=== PATIENT | female | born 1945 | race Caucasian/White ===

== ENCOUNTER 2017-01-25 08:03 | Inpatient (IN) ==
--- NOTE | 2017-01-22 15:01 | Discharge Summary ---
<LaurelKayla E - Last Filed: 01/22/17 14:59> Date of Encounter: 01/22/17 - Discharge Diagnosis (1) Arthritis of knee, left Priority: Primary Status: Chronic (2) Diabetes mellitus Priority: Secondary Status: Chronic Qualifiers: Diabetes mellitus type: type 2 Diabetes mellitus complication status: with unspecified complications Diabetes mellitus fpc insulin use: unspecified fpc insulin use status Qualified Code(s): E11.8 - Type 2 diabetes mellitus with unspecified complications (3) Hypertension Priority: Secondary Status: Chronic Qualifiers: Hypertension type: essential hypertension Qualified Code(s): I10 - Essential (primary) hypertension - Discharge Medications Home Medications: Aspirin Enteric Coated [Aspirin EC] 325 mg PO DAILY #21 tablet.dr 01/24/17 [Rx] OxyCODONE Immed Rel [Roxicodone 5 MG] 5 - 10 mg PO Q6HR PRN #40 tablet 01/24/17 [Rx] Aspirin Enteric Coated [Aspirin EC] 81 mg PO DAILY 01/25/17 [History] GlipiZIDE [Glipizide Xl] 10 mg PO DAILY 01/25/17 [History] Losartan Potassium [Cozaar] 100 mg PO HS 01/25/17 [History] Lovastatin 10 mg PO HS 01/25/17 [History] Metoprolol XL (24 HR) Succ [Toprol XL] 50 mg PO DAILY 01/25/17 [History] Multivitamin [One Daily Essential] 1 each PO DAILY 01/25/17 [History] [place]-3/Dha/Epa/Fish Oil [Fish Oil 1,000 mg Softgel] 1 each PO DAILY 01/25/17 [ History] Pioglitazone HCl [Actos] 30 mg PO DAILY 01/25/17 [History] Sertraline [Zoloft] 50 mg PO HS 01/25/17 [History] Triamterene/HCTZ 37.5/25mg [Dyazide] 1 each PO DAILY 01/25/17 [History] Allergies/Adverse Reactions: Allergies lisinopril Allergy (Verified 01/25/17 09:22) Cough Primary care physician: Jaya Corey - Patient Status Disposition: Transfer Inpatient Rehab Fac Condition: Good - Discharge Instructions Follow Up With: Angel Spencer MD [Partnered Physician] - 02/23/17 9:05 am Lynnette Iyer PAC [Physician Slot Router] - 02/04/17 10:30 am Javi Jenkins MD [Primary Care Provider] - 06/16/17 9:15 am Additional Instructions: Discharge Instructions: Total Knee Replacement Please call [facility] ([phone]), your Primary Care Physician, or report to the Emergency Room if you have any of the following symptoms: Nausea, vomiting, fever greater that 101.5, swelling, chest pain, shortness of breath, increased pain/redness/drainage/odor for your incision site, numbness/ tingling, or any other concerning symptoms. ACTIVITY:Weight-bearing as tolerated. You may progress off support (cruthches or walker) as tolerated. MEDICATIONS: Upon discharge resume your home medications. Take all the medications as prescribed. Take a stool softener if taking narcotic pain medications. Stool softeners are only effective if you drink enough fluids. Drink 6-8 glass of water or fluids a day, unless this is not allowed for another health problem. Despite using stool softeners, if you haven't had a bowel movement in 3 days, please switch to a gentle laxative. Gentle laxatives are sold over the counter. You should have a bowel movement within 24 hours, if not call the office. You will be discharged from the hospital with a prescription for pain medication. You are encouraged to decrease the use of narcotic pain medication as tolerated. Should you require a refill, please call the office. [facility] prescribes narcotic pain medication for only 4-6 weeks after surgery. If you require pain medication beyond this time periord, you may be referred to your Primary Care Physician or to the Pain Clinic for further evaluation. Plan ahead for refills on pain medication as many narcotics either need to be picked up at the office or mailed. It is best to call 48-72 hours in advance of needing a prescription refill so you don't run out of medication. To help control the post-operative pain, you may take NSAIDs (Aleve,Advil, Motrin, ibuprofen, naprosyn) or Tylenol as prescribed on the bottle in addition to the pain medication. ANTICOAGULATION (blood thinners): Continue your Aspirin, Lovenox or Coumadin as prescribed to help prevent a blood clot in the leg or in the lungs. As long as your incision remains dry and you tolerate the NSAIDs (Aleve, Advil, Motrin, ibuprofen, naprosyn), it is OK to use the NSAIDS while you are taking your anticoagulation medication. Should your incision start to drain, stop the NSAID and contact our office. Common symptoms of blood clot in the legs include: localized pain, swelling, calf tenderness, redness or discoloration of the skin. Blood clot in the lung symptoms include: shortness of breath, rapid pulse, sweating, and chest pain that worsens with deep breathing, coughing up blood, lightheadedness, feelings of anxiety. If you experience any of these symptoms notify your physician immediately, go to the emergency room, or if having trouble breathing, call 911. WOUND CARE: Leave the dressing on for 7 days. You may change the dressing if it becomes saturated greater than 50%. You can shower but not a tub bath or submerge your incision in water. Wash your hands with antibacterial soap, rinse and dry prior to any wound care. If you have sharon the visiting nurse or rehab facility can remove the stapes 10-14 days after surgery and place steri- strips across the wound. Leave the steri-strips in place until they fall off on their won. You may let water from the shower run on top of the steri-stirips. If you do not have a visiting nurse or rehab facility, you will need to return to the office at 10-14 days for the sharon to be removed. FOLLOW-UP: Please follow up with your surgeon in the orthopedic clinic in 4 weeks from the day of surgery. If you have sharon that need to be removed, you will need to come back to the office in 10-14 days from the day of surgery. - Hospital Course Hospital course: Ms. Canada is a 71 year old female - Time Spent with Patient Total time spent providing and/or coordinating discharge services: <Lynnette Iyer - Last Filed: 01/24/17 21:39> Date of Encounter: 01/24/17 Primary care physician: Jaya Corey - Hospital Course Hospital course: Ms. [place] is a 71 year old female - Time Spent with Patient Total time spent providing and/or coordinating discharge services: <Angel Spencer - Last Filed: 01/28/17 08:05> Date of Encounter: 01/28/17 Time of Encounter: 08:04 - Discharge Diagnosis (1) Morbid obesity with BMI of 45.0-49.9, adult Priority: Secondary Status: Chronic (2) Arthritis of knee, left Priority: Primary Status: Acute (3) Diabetes mellitus Priority: Secondary Status: Chronic Qualifiers: Diabetes mellitus type: type 2 Diabetes mellitus complication status: with unspecified complications Diabetes mellitus truck terminal manager insulin use: unspecified truck terminal manager insulin use status Qualified Code(s): E11.8 - Type 2 diabetes mellitus with unspecified complications (4) Hypertension Priority: Secondary Status: Chronic Qualifiers: Hypertension type: essential hypertension Qualified Code(s): I10 - Essential (primary) hypertension (5) Acute blood loss anemia Priority: Primary Status: Acute Primary care physician: Jaya Corey - Patient Status Functional capacity at discharge: uses cane/walker Overall status at discharge: patient is progressing back to baseline - Hospital Course Hospital course: Ms. Canada is a 71 year old female The patient had an uneventful postoperative course. They received antibiotics and physical therapy and were discharged in stable condition. There will follow -up in the office in 2 weeks. - Time Spent with Patient Total time spent providing and/or coordinating discharge services:
--- NOTE | 2017-01-25 08:34 | History & Physical Report ---
Date of Encounter: 01/25/17 Time of Encounter: 08:34 24 Hour HP Update - Instructions Instructions: If the History and Physical is less than 30 days old and was completed prior to A.M. admission and or procedure and has NOT been updated on calendar day of procedure please complete this update prior to performing procedure. - Update Patient reports changes in Medical Condition: No Changes in examination, assessment, or condition: No Changes in Medication: No Preop tests/diagnostics Reviewed: Yes Surgery Remains Indicated: Yes Consent for Planned Operative Procedure(s) Verified: Yes - Pre-Operative Checklist Preoperative Checklist Indicated: No Prophylactic Antibiotic Ordered: Yes Is VTE Prophylaxis Indicated?: Yes
[2017-01-25] MEDS ORDERED: Lidocaine -MPF 1% 2 ML VIAL ID ONE (08:54)
[2017-01-25] MEDS ORDERED: CeFAZolin Pre 3,000 MG/100 ML 3,000 MG/100 ML BAG IVPB ONE (08:54)
[2017-01-25] MEDS ORDERED: Ringers Solution, Lactated 1,000 ML IVC SCH ×3 (09:00→12:56)
[2017-01-25] MEDS ORDERED: Famotidine 20 MG/2 ML VIAL IVP ONE (09:12)
--- NOTE | 2017-01-25 09:15 | Anesthesia Evaluation PreOp ---
Date of Encounter: 01/25/17 Time of Encounter: 09:10 - Past History Planned Operation: Left TKA Cardiac History: HTN, Hyperlipidemia Pulmonary History: Denies Any Significant HX CENTRAL STERILIZATION TECHNICIAN History: Denies Any Significant HX Other Medical History: Diabetes Type II Anesthesia History: No Prior Anesthetic Complications : No Alcohol Use: none Drug use: none Medications and Allergies Aspirin Enteric Coated [Aspirin EC] 325 mg PO DAILY #21 tablet. 01/24/17 [Rx] OxyCODONE Immed Rel [Roxicodone 5 MG] 5 - 10 mg PO Q6HR PRN #40 tablet 01/24/17 [Rx] Allergies lisinopril Allergy (Unverified 01/12/17 10:50) Cough - Meds/Allergy Pre-op Review Medications Reviewed: Yes Allergies Reviewed: Yes Beta Blockers on Current Med List: Yes (Took Metoprolol today at 0600 today) Anesthesia Results - Labs Laboratory Tests 01/12/17 01/12/17 10:21 10:21 Hgb 12.1 Hct 37.6 Plt Count 91 L Sodium 138 Potassium 4.5 BUN 27 H Creatinine 1.29 H - Imaging EKG: report reviewed (SB) Anesthesia Exam O2 Sat Height 1.68 m Height 1.68 m Height 1.68 m Weight 129.274 kg Weight 129.274 kg Weight 129.274 kg O2 Sat by Pulse Oximetry 95 Vital Signs Temp Pulse Resp BP Pulse Ox 98.1 F 57 18 152/63 95 01/25/17 08:27 01/25/17 08:27 01/25/17 08:27 01/25/17 08:27 01/25/17 08:27 Height: 5'6 Weight: 285 lbs NPO (# of Hours): MN Pain Scale: 0 - HEENT Pupil (Motor): Pupils equal, EOMI Mallampati: III Oral Opening: Less than or equal to 3 - CENTRAL STERILIZATION TECHNICIAN LOC: Oriented CENTRAL STERILIZATION TECHNICIAN Motor: Normal RUE, Normal LUE, Normal RLE, Normal LLE, Normal Face CENTRAL STERILIZATION TECHNICIAN Sensory: Normal: RUE, LUE, RLE, LLE, Face - Cardiac Rhythm: Regular Murmur: None JVD: No Carotid Bruit: No - Pulmonary Breath Sounds: bilateral Clear Respiratory Effort: Symmetrical Anesthesia Assess/Plan ASA Score: 3 (HTN DM) Modified Fernie Scale for Level of Consciousness: Cooperative, oriented, and tranquil Anesthetic Plan: General, Regional Monitoring Plan: Standard Monitors Recovery Plan: PACU (Discussed GA and RA, agrees to proceed)
[2017-01-25] MEDS ORDERED: Lidocaine -MPF 2% 2 ML VIAL ONE (09:29)
[2017-01-25] MEDS ORDERED: Ondansetron 4 MG/2 ML VIAL ONE (09:29)
[2017-01-25] MEDS ORDERED: *HR* Midazolam HCl 2 MG/2 ML VIAL ONE (09:29)
[2017-01-25] MEDS ORDERED: Dexamethasone 4 MG/ML VIAL ONE (09:29)
[2017-01-25] MEDS ORDERED: *HR* Succinylcholine 200 MG/10 ML VIAL IVP ONE (09:29)
[2017-01-25] MEDS ORDERED: *HR* FentaNYL (PF) 100 MCG/2 ML VIAL ONE ×2 (09:30→11:22)
[2017-01-25] MEDS ORDERED: *HR* Propofol 200 MG/20 ML VIAL IVP ONE (09:30)
[2017-01-25] MEDS ORDERED: *HR* Phenylephrine 10 MG/ML VIAL ONE (09:43)
[2017-01-25] MEDS ORDERED: ROPIVACAINE HCL/PF 0.5% 30 ML VIAL ONE (10:17)
[2017-01-25] MEDS ORDERED: Bupivacaine/Clonidine Syringe 1 EACH SYRINGE ONE (10:18)
--- NOTE | 2017-01-25 10:48 | Anesthesia Procedures ---
Date of Encounter: 01/25/17 Time of Encounter: 10:30 Procedures: Anesthesia - Nerve Block Procedure Date: 01/25/17 Time: 10:30 Pre-op Diagnosis: Left knee arthritis Surgical Procedure: Left total knee arthroplasty Checklist: Correct Patient Identifier, Correct procedure, History checked Correct side: Left Blood Thinner: No Monitor Applied: EKG, BP, Pulse Oximetry Supplemental Oxygen via Nasal Cannula (L/min): 2 Sedation: Versed (mg): 2 Sedation: Fentanyl (mcg): 100 Indication: Post Op Analgesia Pre-op Neuro Deficits: No Block Type: Femoral, Popliteal, Other (I) Catheter placed: No Sterile Technique: Yes Ultrasound used: Yes Anatomy identified: Yes Visual spread of Local: Yes Neuro Stimulation: Yes Nerve Stimulator Range: 0.2 - 0.4 mA Blood on Needle Aspiration: No Smooth Injection of Local: Yes Pain with Injection of Local: No Prep: Chlorhexadine Needle: 22 x 50 mm Stimuplex Local: 0.25% Bupivicaine w/Clonidine 20 mcg/cc, Ropivacaine (0.5% 30ml) Volume (cc): 20 Number of Attempts: 1 Complications: None/effective block Vitals: Vital Signs/O2 Sat/Glucose, Most Recent Temp Pulse Resp BP Pulse Ox 98.1 F 57 16 149/62 95 01/25/17 08:27 01/25/17 10:23 01/25/17 10:23 01/25/17 10:23 01/25/17 10:23
[2017-01-25] MEDS ORDERED: Dexamethasone 4 MG/ML VIAL IVP ONE (11:06)
[2017-01-25] MEDS ORDERED: Ondansetron 4 MG/2 ML VIAL IVP ONE (11:06)
--- NOTE | 2017-01-25 11:36 | Orthopedic Operative Note ---
Date of procedure: 01/25/17 Pre-op diagnosis: Left knee arthritis Post-op diagnosis: same Procedure: Procedure: Left Total knee replacement Estimated blood loss: 300 cc Hardware: Arthrex Femur: 5 Tibia: 4 PS insert: 12 Patella: 37 Exam Under anesthesia: Full flexion full extension no instability Procedural Notes: Grade 3 arthritic changes patellofemoral joint and medial compartment Operative procedure: The patient was brought to the operating room and placed on the operating room table. After general anesthesia was administered the operative knee was examined. Findings were noted in the exam under anesthesia. The operative extremity was prepped and draped in sterile surgical fashion. The patient received IV antibiotics prior to skin incision. A standard midline incision was made centered over the patella. The incision was made through the skin and subcutaneous tissue. A medial parapatellar tendon approach was performed. Care was taken to preserve tissue along the medial aspect of the patella. And to protect the patella tendon. The deep MCL was released off the medial tibia. The infra patella fat pad was excised. Knee was brought into flexion. Patient noted to have grade 3 arthritic changes patellofemoral joint and medial compartment. The entry hole was made for the intramedullary femoral guide. The guide was seated in 6 degrees of valgus. Anterior cut was made followed by the distal cut. The ACL the PCL the medial and the lateral menisci were excised. The tibia was subluxed forward. The entry hole was made for the intramedullary tibial guide. Guide was seated to resect 2 mm off the more abnormal side. The knee was brought into flexion the distal femur was sized to a 5. The femoral guide was seated, the anterior cut was made followed by the posterior condylar cut, followed by the chamfer cuts. The finishing guide was seated the box cut was made and the lug holes were drilled. The tibia was sized to a 4, the tibial tray was seated and prepared with the large drill followed by the fin cutter. Trial reduction revealed full extension no varus valgus instability with the appropriate 12 PS Katie. The patella was everted and cut was made at the level of the insertion of the quadriceps and patella tendon. The patella was sized to a 37 the guide was seated and the lug holes are drilled. Trial reduction revealed excellent patella tracking. All trial components were removed all bony surfaces were irrigated. The tibia was cemented first followed by the femur. The 12 PS Katie was seated and the knee was brought into full extension. The patella was cemented and held in place with the patellar holding clamp. After the cement had hardened, the knee sat for 2 minutes with a Betadine saline solution. The knee was then irrigated out with 2 L of pulse irrigation. The extensor mechanism was closed with #2 FiberWire suture and #2 PDS suture. The subcutaneous tissue was then irrigated and closed deep with #1 PDS suture superficially with 0 PDS suture and skin was closed with skin sharon. The patient was then placed in a sterile dressing and a postoperative brace extubated and transferred to recovery room in stable condition. Anesthesia: MATEO Surgeon: Angel Spencer Social Insurance Administrator: Lynnette Iyer Condition: stable Disposition: PACU
[2017-01-25] MEDS: *HR* HYDROmorphone (PF) 1 MG/ML SYRINGE IVP PRN ×6 (12:11→20:52)
[2017-01-25 12:25] LABS: Hematocrit 33.7 % (35.3-44.9); Hemoglobin 10.7 g/dL (11.5-15.4)
[2017-01-25] MEDS ORDERED: Temazepam 15 MG CAPSULE PO PRN (12:56)
[2017-01-25] MEDS ORDERED: MOM Conc 10 ML UD.LIQ PO PRN (12:56)
[2017-01-25] MEDS ORDERED: Acetaminophen 325 MG TABLET PO PRN (12:56)
[2017-01-25] MEDS ORDERED: Sennosides 8.6 MG TABLET PO PRN (12:56)
[2017-01-25] MEDS ORDERED: D5% in Water 1,000 ML IVC PRN (12:56)
[2017-01-25] MEDS ORDERED: Dextrose Gel 15 GM PO PRN ×2 (12:56)
[2017-01-25] MEDS ORDERED: Naloxone 0.4 MG/ML INJ IVP PRN (12:56)
[2017-01-25] MEDS ORDERED: *HR* Dextrose 50 % in Water (Syg) 50 ML SYRINGE IVP PRN (12:56)
[2017-01-25] MEDS ORDERED: Ondansetron 4 MG/2 ML VIAL IVP PRN (12:56)
--- NOTE | 2017-01-25 13:08 | Anesthesia Evaluation Post Op ---
Date of Encounter: 01/25/17 Time of Encounter: 12:30 - Vital Signs Vital Signs: Vital Signs/O2 Sat/Glucose, Most Current Temp Pulse Resp BP Pulse Ox 01/25/17 12:59 98 F 64 13 157/69 96 01/25/17 12:45 98.2 F 61 14 147/69 98 01/25/17 12:35 98.2 F 68 15 155/64 97 01/25/17 12:25 66 18 146/71 96 01/25/17 12:15 69 17 158/64 93 01/25/17 12:05 97.0 F L 79 14 102/82 94 01/25/17 10:40 57 16 163/64 98 01/25/17 10:23 57 16 149/62 95 - Lungs Lungs: Clear Ascult./Percussion - Airway Airway: Non-obstructed - Cardiovascular Regular Rate - Mental Status Mental Status: Alert & Oriented, Answers Appropriately - Pain Pain Scale: 2 - Nausea Vomiting Nausea Vomiting: Not Present - Hydration Hydration: Ice chips - Discharge PostOp Status: Transfer Patient to floor
[2017-01-25] MEDS: *HR* OxyCODONE Immed Rel 5 MG TABLET PO PRN ×2 (13:59→18:24)
[2017-01-25] MEDS: Insulin LISPRO 300 UNITS/3 ML VIAL SQ SCH ×2 (14:06→17:17)
[2017-01-25] MEDS: *HR* Enoxaparin 30 MG/0.3 ML SYRINGE SQ SCH (17:16)
[2017-01-25] MEDS ORDERED: *HR* Enoxaparin 30 MG/0.3 ML SYRINGE SQ SCH (18:00)
[2017-01-25] MEDS: ceFAZolin 3,000 MG in D5% in Water 100 ML IVPB SCH (18:23)
[2017-01-26] MEDS: *HR* OxyCODONE Immed Rel 5 MG TABLET PO PRN ×5 (00:11→18:36)
[2017-01-26] MEDS: ceFAZolin 3,000 MG in D5% in Water 100 ML IVPB SCH (02:25)
[2017-01-26] MEDS: *HR* Enoxaparin 30 MG/0.3 ML SYRINGE SQ SCH ×2 (04:46→16:52)
--- NOTE | 2017-01-26 06:52 | Orthopedics Progress Note ---
Date of Encounter: 01/26/17 Time of Encounter: 06:51 - Assessment and Plan (1) Morbid obesity with BMI of 45.0-49.9, adult Current Visit: Yes Status: Chronic (2) Arthritis of knee, left Current Visit: Yes Status: Acute (3) Diabetes mellitus Current Visit: Yes Status: Chronic Qualifiers: Diabetes mellitus type: type 2 Diabetes mellitus complication status: with unspecified complications Diabetes mellitus termite helper insulin use: unspecified snf insulin use status Qualified Code(s): E11.8 - Type 2 diabetes mellitus with unspecified complications (4) Hypertension Current Visit: Yes Status: Chronic Qualifiers: Hypertension type: essential hypertension Qualified Code(s): I10 - Essential (primary) hypertension Subjective Interval history: Patient was seen this morning doing well without complaints. Afebrile vital signs stable. Operative extremity: Neurovascularly intact Dressing clean dry and intact Calves nontender Assessment and plan: Continue with postoperative care Hematocrit 33 Objective Vital signs: Vital Signs Temp Pulse Resp BP Pulse Ox 01/26/17 06:40 98.7 F 69 18 139/56 97 01/26/17 04:00 98.0 F 60 16 160/80 96 01/26/17 00:00 97.7 F 63 16 172/80 96 01/25/17 21:04 96 01/25/17 20:00 97.8 F 60 17 170/81 96 01/25/17 15:38 97.6 F 63 18 150/61 96 01/25/17 15:32 97.5 F L 62 18 154/77 94 01/25/17 13:57 97.9 F 65 14 145/65 95 01/25/17 12:59 98 F 64 13 157/69 96 01/25/17 12:45 98.2 F 61 14 147/69 98 01/25/17 12:35 98.2 F 68 15 155/64 97 01/25/17 12:25 66 18 146/71 96 01/25/17 12:15 69 17 158/64 93 01/25/17 12:05 97.0 F L 79 14 102/82 94 01/25/17 10:40 57 16 163/64 98 01/25/17 10:23 57 16 149/62 95 01/25/17 08:27 98.1 F 57 18 152/63 95 Intake and Output 01/25/17 01/25/1701/26/17 15:59 23:59 07:59 Intake Total 200 / 200 1100 / 1100 Output Total 600 / 600 300 / 300 Balance -600 / -600 -100 / -100 1100 / 1100 Intake: IV Fluids 100 / 100 1000 / 1000 Lactated Ringers 1,000 ML 1000 / 1000 @ 75 mls/hr IVC .[id number] DEVEN Rx#:[id number] Ancef 3,000 MG In 100 / 100 Dextrose 5% 100 ML @ 200 mls/hr IVPB Q8H DEVEN Rx#: [id number] Oral 100 / 100 100 / 100 Output: Urine 300 / 300 Estimated Blood Loss 600 / 600 Other: Weight 129.274 kg Blood Glucose* 132 196 - Labs CBC & BMP: 01/25/17 12:15 Labs: Abnormal lab results Hgb 10.7 g/dL (11.5-15.4) L 01/25/17 12:15 Hct 33.7 % (35.3-44.9) L 01/25/17 12:15 POC Glucose 132 (58-89) H 01/25/17 12:09 - VTE Documentation of Mechanical Device: Venous foot pump, device Consult Discharge Plan - Plan Referrals: Javi Jenkins MD [Primary Care Provider] -
[2017-01-26 07:03] LABS: Hematocrit 31.3 % (35.3-44.9)
[2017-01-26 07:20] LABS: Calcium 8.9 mg/dL (8.6-10.8); Potassium 5.4 mEq/L (3.5-4.5)
[2017-01-26] MEDS: Aspirin Enteric Coated 81 MG Tablet PO SCH (07:44)
[2017-01-26] MEDS: *HR* Pioglitazone 30 MG TABLET PO SCH (07:44)
[2017-01-26] MEDS: (Omega-3/Dha/Epa/Fish Oil [Fish Oil 1,000 Mg Softgel] PO SCH (07:45)
[2017-01-26] MEDS: *HR* GlipiZIDE XL (24 HR) 10 MG TABLET PO SCH (07:45)
[2017-01-26] MEDS: Multivit/Ca/Min/Fe/FA 1 TAB TABLET PO SCH (07:45)
[2017-01-26] MEDS: Metoprolol XL (24 HR) Succ 50 MG TAB.ER.24H PO SCH (07:46)
[2017-01-26] MEDS: *HR* HYDROmorphone (PF) 1 MG/ML SYRINGE IVP PRN ×4 (07:46→20:53)
[2017-01-26] MEDS: Insulin LISPRO 300 UNITS/3 ML VIAL SQ SCH ×3 (07:48→16:49)
[2017-01-27] MEDS: *HR* OxyCODONE Immed Rel 5 MG TABLET PO PRN ×5 (02:19→23:33)
[2017-01-27] MEDS: *HR* Enoxaparin 30 MG/0.3 ML SYRINGE SQ SCH ×2 (05:13→16:53)
[2017-01-27 06:44] LABS: Hematocrit 28.9 % (35.3-44.9); Hemoglobin 9.4 g/dL (11.5-15.4)
[2017-01-27 06:59] LABS: Calcium 9.3 mg/dL (8.6-10.8); Potassium 4.8 mEq/L (3.5-4.5)
[2017-01-27] MEDS: Aspirin Enteric Coated 81 MG Tablet PO SCH (08:01)
[2017-01-27] MEDS: Metoprolol XL (24 HR) Succ 50 MG TAB.ER.24H PO SCH (08:02)
[2017-01-27] MEDS: Multivit/Ca/Min/Fe/FA 1 TAB TABLET PO SCH (08:02)
[2017-01-27] MEDS: *HR* Pioglitazone 30 MG TABLET PO SCH (08:02)
[2017-01-27] MEDS: *HR* HYDROmorphone (PF) 1 MG/ML SYRINGE IVP PRN ×3 (08:02→17:59)
[2017-01-27] MEDS: *HR* GlipiZIDE XL (24 HR) 10 MG TABLET PO SCH (08:02)
[2017-01-27] MEDS: Insulin LISPRO 300 UNITS/3 ML VIAL SQ SCH ×3 (08:14→16:53)
--- NOTE | 2017-01-27 08:35 | Orthopedics Progress Note ---
Date of Encounter: 01/27/17 Time of Encounter: 08:34 - Assessment and Plan (1) Morbid obesity with BMI of 45.0-49.9, adult Current Visit: Yes Status: Chronic (2) Arthritis of knee, left Current Visit: Yes Status: Acute (3) Diabetes mellitus Current Visit: Yes Status: Chronic Qualifiers: Diabetes mellitus type: type 2 Diabetes mellitus complication status: with unspecified complications Diabetes mellitus intermediate card tender insulin use: unspecified care home insulin use status Qualified Code(s): E11.8 - Type 2 diabetes mellitus with unspecified complications (4) Hypertension Current Visit: Yes Status: Chronic Qualifiers: Hypertension type: essential hypertension Qualified Code(s): I10 - Essential (primary) hypertension (5) Acute blood loss anemia Current Visit: Yes Status: Acute Subjective Interval history: Patient was seen this morning doing well without complaints. Afebrile vital signs stable. Operative extremity: Neurovascularly intact Dressing clean dry and intact Calves nontender Assessment and plan: Continue with postoperative care Hematocrit 28.9 Objective Vital signs: Vital Signs Temp Pulse Resp BP Pulse Ox 01/27/17 07:04 98.9 F 81 16 156/71 94 01/27/17 04:24 99.0 F 87 17 152/76 93 01/27/17 00:34 98.6 F 95 16 156/70 93 01/26/17 20:05 99.1 F 82 15 178/66 92 01/26/17 15:46 98.6 F 81 18 153/69 93 01/26/17 10:51 98.9 F 81 18 152/62 93 Intake and Output 01/26/17 01/27/17 01/27/17 23:59 07:59 15:59 Intake Total 100 / 100 Output Total 1000 / 1000 Balance -900 / -900 Intake: IV Fluids 100 / 100 Output: Urine 1000 / 1000 Other: # Voids 1 Blood Glucose* 184 191 - Labs CBC & BMP: 01/27/17 06:19 01/27/17 06:19 Labs: Abnormal lab results Hgb 9.4 g/dL (11.5-15.4) L 01/27/17 06:19 Hct 28.9 % (35.3-44.9) L 01/27/17 06:19 Sodium 130 mEq/L (136-145) L 01/27/17 06:19 Potassium 4.8 mEq/L (3.5-4.5) H 01/27/17 06:19 Chloride 97 mEq/L (98-109) L 01/27/17 06:19 BUN 30 mg/dL (7-20) H 01/27/17 06:19 Creatinine 1.35 mg/dL (0.57-1.11) H 01/27/17 06:19 Est GFR ( Amer) 47 (> 60) L 01/27/17 06:19 Est GFR (Non-Af Amer) 39 (> 60) L 01/27/17 06:19 Glucose 185 mg/dL (70-99) H 01/27/17 06:19 POC Glucose 132 (58-89) H 01/25/17 12:09 - VTE Documentation of Mechanical Device: Venous foot pump, device Consult Discharge Plan - Plan Additional Instructions: Discharge Instructions: Total Knee Replacement Please call [facility] ([phone]), your Primary Care Physician, or report to the Emergency Room if you have any of the following symptoms: Nausea, vomiting, fever greater that 101.5, swelling, chest pain, shortness of breath, increased pain/redness/drainage/odor for your incision site, numbness/ tingling, or any other concerning symptoms. ACTIVITY:Weight-bearing as tolerated. You may progress off support (cruthches or walker) as tolerated. MEDICATIONS: Upon discharge resume your home medications. Take all the medications as prescribed. Take a stool softener if taking narcotic pain medications. Stool softeners are only effective if you drink enough fluids. Drink 6-8 glass of water or fluids a day, unless this is not allowed for another health problem. Despite using stool softeners, if you haven't had a bowel movement in 3 days, please switch to a gentle laxative. Gentle laxatives are sold over the counter. You should have a bowel movement within 24 hours, if not call the office. You will be discharged from the hospital with a prescription for pain medication. You are encouraged to decrease the use of narcotic pain medication as tolerated. Should you require a refill, please call the office. [facility] prescribes narcotic pain medication for only 4-6 weeks after surgery. If you require pain medication beyond this time periord, you may be referred to your Primary Care Physician or to the Pain Clinic for further evaluation. Plan ahead for refills on pain medication as many narcotics either need to be picked up at the office or mailed. It is best to call 48-72 hours in advance of needing a prescription refill so you don't run out of medication. To help control the post-operative pain, you may take NSAIDs (Aleve,Advil, Motrin, ibuprofen, naprosyn) or Tylenol as prescribed on the bottle in addition to the pain medication. ANTICOAGULATION (blood thinners): Continue your Aspirin, Lovenox or Coumadin as prescribed to help prevent a blood clot in the leg or in the lungs. As long as your incision remains dry and you tolerate the NSAIDs (Aleve, Advil, Motrin, ibuprofen, naprosyn), it is OK to use the NSAIDS while you are taking your anticoagulation medication. Should your incision start to drain, stop the NSAID and contact our office. Common symptoms of blood clot in the legs include: localized pain, swelling, calf tenderness, redness or discoloration of the skin. Blood clot in the lung symptoms include: shortness of breath, rapid pulse, sweating, and chest pain that worsens with deep breathing, coughing up blood, lightheadedness, feelings of anxiety. If you experience any of these symptoms notify your physician immediately, go to the emergency room, or if having trouble breathing, call 911. WOUND CARE: Leave the dressing on for 7 days. You may change the dressing if it becomes saturated greater than 50%. You can shower but not a tub bath or submerge your incision in water. Wash your hands with antibacterial soap, rinse and dry prior to any wound care. If you have sharon the visiting nurse or rehab facility can remove the stapes 10-14 days [address] surgery [address] steri- strips across the wound. Leave the steri-strips in place until they fall off on their won. You may let water from the shower run on top of the steri-stirips. If you do not have a visiting nurse or rehab facility, you will need to return to the office at 10-14 days for the sharon to be removed. FOLLOW-UP: Please follow up with your surgeon in the orthopedic clinic in 4 weeks from the day of surgery. If you have sharon that need to be removed, you will need to come back to the office in 10-14 days from the day of surgery. Referrals: Angel Spencer MD [Partnered Physician] - 02/23/17 9:05 am Lynnette Iyer PAC [Physician Unit Tender] - 02/04/17 10:30 am Javi Jenkins MD [Primary Care Provider] - 06/16/17 9:15 am
[2017-01-27] MEDS: (Omega-3/Dha/Epa/Fish Oil [Fish Oil 1,000 Mg Softgel] PO SCH (09:37)
[2017-01-28] MEDS: *HR* OxyCODONE Immed Rel 5 MG TABLET PO PRN ×2 (05:40→10:16)
[2017-01-28] MEDS: *HR* Enoxaparin 30 MG/0.3 ML SYRINGE SQ SCH (05:41)
--- NOTE | 2017-01-28 08:07 | Orthopedics Progress Note ---
Date of Encounter: 01/28/17 Time of Encounter: 08:07 - Assessment and Plan (1) Morbid obesity with BMI of 45.0-49.9, adult Current Visit: Yes Status: Chronic (2) Arthritis of knee, left Current Visit: Yes Status: Acute (3) Diabetes mellitus Current Visit: Yes Status: Chronic Qualifiers: Diabetes mellitus type: type 2 Diabetes mellitus complication status: with unspecified complications Diabetes mellitus terminal supervisor insulin use: unspecified residential insulin use status Qualified Code(s): E11.8 - Type 2 diabetes mellitus with unspecified complications (4) Hypertension Current Visit: Yes Status: Chronic Qualifiers: Hypertension type: essential hypertension Qualified Code(s): I10 - Essential (primary) hypertension (5) Acute blood loss anemia Current Visit: Yes Status: Acute Subjective Interval history: Patient was seen this morning doing well without complaints. Afebrile vital signs stable. Operative extremity: Neurovascularly intact Dressing clean dry and intact Calves nontender Assessment and plan: Continue with postoperative care Discharged today Objective Vital signs: Vital Signs Temp Pulse Resp BP Pulse Ox 01/28/17 06:59 99.0 F 87 16 159/67 94 01/28/17 04:23 99.2 F 81 17 163/68 93 01/28/17 00:38 98.9 F 81 16 163/74 92 01/27/17 21:29 92 01/27/17 20:27 99.1 F 90 16 160/67 92 01/27/17 14:49 98.8 F 85 18 145/68 93 01/27/17 11:00 98.6 F 81 16 152/60 92 Intake and Output 01/27/17 01/28/17 01/28/17 23:59 07:59 15:59 Output Total 300 / 300 Balance -300 / -300 Output: Urine 300 / 300 Other: Blood Glucose* 164 178 - Labs CBC & BMP: 01/27/17 06:19 01/27/17 06:19 Labs: Abnormal lab results Hgb 9.4 g/dL (11.5-15.4) L 01/27/17 06:19 Hct 28.9 % (35.3-44.9) L 01/27/17 06:19 Sodium 130 mEq/L (136-145) L 01/27/17 06:19 Potassium 4.8 mEq/L (3.5-4.5) H 01/27/17 06:19 Chloride 97 mEq/L (98-109) L 01/27/17 06:19 BUN 30 mg/dL (7-20) H 01/27/17 06:19 Creatinine 1.35 mg/dL (0.57-1.11) H 01/27/17 06:19 Est GFR ( Amer) 47 (> 60) L 01/27/17 06:19 Est GFR (Non-Af Amer) 39 (> 60) L 01/27/17 06:19 Glucose 185 mg/dL (70-99) H 01/27/17 06:19 POC Glucose 178 (58-89) H 01/28/17 07:02 - VTE Documentation of Mechanical Device: Venous foot pump, device Consult Discharge Plan - Plan Additional Instructions: Discharge Instructions: Total Knee Replacement Please call [facility] ([phone]), your Primary Care Physician, or report to the Emergency Room if you have any of the following symptoms: Nausea, vomiting, fever greater that 101.5, swelling, chest pain, shortness of breath, increased pain/redness/drainage/odor for your incision site, numbness/ tingling, or any other concerning symptoms. ACTIVITY:Weight-bearing as tolerated. You may progress off support (cruthches or walker) as tolerated. MEDICATIONS: Upon discharge resume your home medications. Take all the medications as prescribed. Take a stool softener if taking narcotic pain medications. Stool softeners are only effective if you drink enough fluids. Drink 6-8 glass of water or fluids a day, unless this is not allowed for another health problem. Despite using stool softeners, if you haven't had a bowel movement in 3 days, please switch to a gentle laxative. Gentle laxatives are sold over the counter. You should have a bowel movement within 24 hours, if not call the office. You will be discharged from the hospital with a prescription for pain medication. You are encouraged to decrease the use of narcotic pain medication as tolerated. Should you require a refill, please call the office. [facility] prescribes narcotic pain medication for only 4-6 weeks after surgery. If you require pain medication beyond this time periord, you may be referred to your Primary Care Physician or to the Pain Clinic for further evaluation. Plan ahead for refills on pain medication as many narcotics either need to be picked up at the office or mailed. It is best to call 48-72 hours in advance of needing a prescription refill so you don't run out of medication. To help control the post-operative pain, you may take NSAIDs (Aleve,Advil, Motrin, ibuprofen, naprosyn) or Tylenol as prescribed on the bottle in addition to the pain medication. ANTICOAGULATION (blood thinners): Continue your Aspirin, Lovenox or Coumadin as prescribed to help prevent a blood clot in the leg or in the lungs. As long as your incision remains dry and you tolerate the NSAIDs (Aleve, Advil, Motrin, ibuprofen, naprosyn), it is OK to use the NSAIDS while you are taking your anticoagulation medication. Should your incision start to drain, stop the NSAID and contact our office. Common symptoms of blood clot in the legs include: localized pain, swelling, calf tenderness, redness or discoloration of the skin. Blood clot in the lung symptoms include: shortness of breath, rapid pulse, sweating, and chest pain that worsens with deep breathing, coughing up blood, lightheadedness, feelings of anxiety. If you experience any of these symptoms notify your physician immediately, go to the emergency room, or if having trouble breathing, call 911. WOUND CARE: Leave the dressing on for 7 days. You may change the dressing if it becomes saturated greater than 50%. You can shower but not a tub bath or submerge your incision in water. Wash your hands with antibacterial soap, rinse and dry prior to any wound care. If you have sharon the visiting nurse or rehab facility can remove the stapes 10-14 [address] surgery [address] steri- strips across the wound. Leave the steri-strips in place until they fall off on their won. You may let water from the shower run on top of the steri-stirips. If you do not have a visiting nurse or rehab facility, you will need to return to the office at 10-14 days for the sharon to be removed. FOLLOW-UP: Please follow up with your surgeon in the orthopedic clinic in 4 weeks from the day of surgery. If you have sharon that need to be removed, you will need to come back to the office in 10-14 days from the day of surgery. Referrals: Angel Spencer MD [Partnered Physician] - 02/23/17 9:05 am Lynnette Iyer PAC [Physician House Registry Rn] - 02/04/17 10:30 am Javi Jenkins MD [Primary Care Provider] - 06/16/17 9:15 am
[2017-01-28] MEDS: Insulin LISPRO 300 UNITS/3 ML VIAL SQ SCH ×2 (08:23→11:52)
[2017-01-28] MEDS: *HR* GlipiZIDE XL (24 HR) 10 MG TABLET PO SCH (08:23)
[2017-01-28] MEDS: *HR* Pioglitazone 30 MG TABLET PO SCH (08:23)
[2017-01-28] MEDS: Metoprolol XL (24 HR) Succ 50 MG TAB.ER.24H PO SCH (08:24)
[2017-01-28] MEDS: Aspirin Enteric Coated 81 MG Tablet PO SCH (08:24)
[2017-01-28] MEDS: Multivit/Ca/Min/Fe/FA 1 TAB TABLET PO SCH (08:24)
[2017-01-28] MEDS: (Omega-3/Dha/Epa/Fish Oil [Fish Oil 1,000 Mg Softgel] PO SCH (10:15)
[2017-01-28 11:36] VITALS: BP 149/70
== END 2017-01-28 12:45 | DRG 470 ==
LOC: SAMDAY 08:03 → 3NENU 12:56
PROVIDERS: ADMIT Orthopaedic Surgery; ATTEND Orthopaedic Surgery

== ENCOUNTER 2020-05-27 13:06 | Inpatient (IN) ==
[2020-05-27 14:07] LABS: Hematocrit 31.6 % (35.3-44.9); Hemoglobin 9.9 g/dL (11.5-15.4); Mean Corpuscular HGB Conc 31.3 g/dL (31.6-35.5); Mean Corpuscular Hemoglobin 27.7 pg (28.0-33.3); Mean Corpuscular Volume 88.3 fL (83.0-100.0); Mean Platelet Volume 11.1 fL (9.4-12.4); Platelet Count 154 K/mcL (140-400); Red Blood Count 3.58 M/mcL (3.82-4.97); Red Cell Distribution Width 13.6 % (11.5-14.5); White Blood Count 16.3 K/mcL (4.3-11.1)
[2020-05-27 14:14] LABS: INR 1.2; Prothrombin Time 13.7 Seconds (9.4-12.1)
[2020-05-27 14:16] LABS: Activated Partial Thrombo Time 29.1 Seconds (26.0-36.0)
[2020-05-27 14:27] LABS: Albumin 3.6 g/dL (3.5-5.7); Albumin/Globulin Ratio 1.6 (1.1-2.2); Bilirubin,Direct 0.1 mg/dL (0.0-0.2); Bilirubin,Indirect 0.4 mg/dL (0.0-1.0); Bilirubin,Total 0.5 mg/dL (0.3-1.0); Calcium 8.7 mg/dL (8.6-10.3); Globulin 2.2 g/dL (2.4-3.5); Potassium 4.4 mEq/L (3.5-5.1); Total Protein 5.8 g/dL (6.4-8.9)
[2020-05-27 14:37] LABS: Lymphocytes # 3.9 K/mcL (0.6-4.6); Monocytes # 1.3 K/mcL (0.0-1.3); Neutrophils # 11.1 K/mcL (1.6-8.9); Platelet Estimate Normal (Normal); Reactive Lymphocytes Present (Not Present)
[2020-05-27 14:38] LABS: Poikilocytosis 1+ (Not Present)
[2020-05-27] MEDS ORDERED: cefTRIAXone 2,000 MG in 0.9 % Sodium Chloride Mini Bag 100 ML IVPB ONE (15:32)
[2020-05-27] MEDS: Albumin 25% 25gram/100mL 25 GM/100 ML IV.SOLN IVC SCH (16:18)
[2020-05-27 17:11] LABS: Glucose,Peritoneal Fluid 102 mg/dL (No Ref Range); LDH,Peritoneal Fluid 79 Units/L (No Ref Range); Total Protein,Peritoneal Fluid < 3.0 g/dL
[2020-05-27] MEDS ORDERED: Naloxone 0.4 MG/ML INJ IVP PRN (17:21)
[2020-05-27] MEDS ORDERED: Perflutren Lipid Microsphere 1.3 ML in 0.9 % Sodium Chloride 8.7 ML IVP PRN (17:44)
[2020-05-27 17:46] LABS: Hepatitis B Surface Antigen Nonreactive (Nonreactive)
[2020-05-27] MEDS ORDERED: Furosemide 40 MG/4 ML VIAL IVP ONE (17:46)
[2020-05-27] MEDS ORDERED: Dextrose Gel 15 GM/37.5 ML TUBE PO PRN ×2 (17:52)
[2020-05-27] MEDS ORDERED: D5% in Water 1,000 ML IVC PRN (17:52)
[2020-05-27] MEDS ORDERED: *HR* Dextrose 50 % in Water (Vial) 50 ML VIAL IVP PRN (17:52)
[2020-05-27 17:55] LABS: Adenovirus Not Detected (Not Detect); Coronavirus 229E Not Detected (Not Detect); Coronavirus HKU1 Not Detected (Not Detect); Coronavirus NL63 Not Detected (Not Detect); Coronavirus OC43 Not Detected (Not Detect)
[2020-05-27 17:56] LABS: Bordetella Pertussis Not Detected (Not Detect); Chlamydophila pneumoniae Not Detected (Not Detect); Human Metapneumovirus Not Detected (Not Detect); Human Rhinovirus/Enterovirus Not Detected (Not Detect); Influenza A Subtype 2009 H1 Not Detected (Not Detect); Influenza B Not Detected (Not Detect); Mycoplasma pneumoniae Not Detected (Not Detect); Parainfluenza Virus 1 Not Detected (Not Detect); Parainfluenza Virus 2 Not Detected (Not Detect); Parainfluenza Virus 3 Not Detected (Not Detect); Parainfluenza Virus 4 Not Detected (Not Detect); Respiratory Syncytial Virus Not Detected (Not Detect)
[2020-05-27 17:57] LABS: SARS-CoV-2 Not Detected (Not Detect)
[2020-05-27 18:15] LABS: Hepatitis B Core IgM Nonreactive (Nonreactive); Hepatitis C Virus Antibody Nonreactive (Nonreactive)
[2020-05-27 18:17] LABS: Hepatitis A Antibody IgM Nonreactive (Nonreactive)
[2020-05-27 20:01] LABS: Appearance of Peritoneal Fl BLOODY (Clear)
[2020-05-27 20:04] LABS: Basophils,Peritoneal Fluid 0 %; Eosinophils,Peritoneal Fluid 0 %
[2020-05-27] MEDS: Insulin LISPRO 300 UNITS/3 ML VIAL SQ SCH (21:13)
[2020-05-28 02:10] LABS: Basophils % 0.3 %; Eosinophils % 0.2 %; Hematocrit 30.8 % (35.3-44.9); Hemoglobin 9.8 g/dL (11.5-15.4); Immature Granulocytes % 0.4 % (0-4); Lymphocytes # 3.3 K/mcL (0.6-4.6); Lymphocytes % 28.2 %; Mean Corpuscular HGB Conc 31.8 g/dL (31.6-35.5); Mean Corpuscular Hemoglobin 27.9 pg (28.0-33.3); Mean Corpuscular Volume 87.7 fL (83.0-100.0); Mean Platelet Volume 11.5 fL (9.4-12.4); Monocytes % 8.3 %; Neutrophils # 7.3 K/mcL (1.6-8.9); Platelet Count 128 K/mcL (140-400); Red Blood Count 3.51 M/mcL (3.82-4.97); Red Cell Distribution Width 13.6 % (11.5-14.5); Segmented Neutrophils % 62.6 %; White Blood Count 11.6 K/mcL (4.3-11.1)
[2020-05-28 02:26] LABS: Calcium 8.5 mg/dL (8.6-10.3); Potassium 4.5 mEq/L (3.5-5.1)
[2020-05-28] MEDS: *HR* Heparin 5,000 UNIT/ML VIAL SQ SCH ×3 (06:39→17:15)
[2020-05-28] MEDS: Albumin 25% 25gram/100mL 25 GM/100 ML IV.SOLN IVC SCH (08:01)
[2020-05-28] MEDS: Insulin LISPRO 300 UNITS/3 ML VIAL SQ SCH ×4 (08:02→20:20)
[2020-05-28] MEDS ORDERED: Furosemide 40 MG TABLET PO SCH (09:00)
[2020-05-28] MEDS ORDERED: cefTRIAXone 2,000 MG in Water for inj. (sterile) 20 ML IVP SCH (09:00)
[2020-05-28] MEDS: hydrALAZINE 25 MG TABLET PO SCH ×3 (10:51→20:16)
[2020-05-28] MEDS: Aspirin Enteric Coated 81 MG Tablet PO SCH (10:51)
[2020-05-28] MEDS ORDERED: Spironolactone 25 MG TABLET PO SCH (11:30)
[2020-05-28] MEDS: Albumin 25% 25gram/100mL 25 GM/100 ML IV.SOLN IVPB SCH ×2 (17:15→23:59)
[2020-05-28] MEDS: carvediloL 6.25 MG TABLET PO SCH (17:15)
[2020-05-29] MEDS: *HR* Heparin 5,000 UNIT/ML VIAL SQ SCH (05:14)
[2020-05-29] MEDS: Albumin 25% 25gram/100mL 25 GM/100 ML IV.SOLN IVPB SCH ×2 (05:19→11:34)
[2020-05-29 06:30] LABS: Basophils % 0.2 %; Eosinophils # 0.1 K/mcL (0.0-0.6); Eosinophils % 0.7 %; Hematocrit 27.5 % (35.3-44.9); Hemoglobin 8.6 g/dL (11.5-15.4); Immature Granulocytes % 0.4 % (0-4); Lymphocytes # 2.9 K/mcL (0.6-4.6); Lymphocytes % 34.2 %; Mean Corpuscular HGB Conc 31.3 g/dL (31.6-35.5); Mean Corpuscular Hemoglobin 28.4 pg (28.0-33.3); Mean Corpuscular Volume 90.8 fL (83.0-100.0); Mean Platelet Volume 11.5 fL (9.4-12.4); Monocytes # 0.9 K/mcL (0.0-1.3); Monocytes % 10.1 %; Neutrophils # 4.7 K/mcL (1.6-8.9); Platelet Count 100 K/mcL (140-400); Red Blood Count 3.03 M/mcL (3.82-4.97); Red Cell Distribution Width 13.6 % (11.5-14.5); Segmented Neutrophils % 54.4 %; White Blood Count 8.5 K/mcL (4.3-11.1)
[2020-05-29 06:43] LABS: Calcium 8.3 mg/dL (8.6-10.3); Potassium 4.1 mEq/L (3.5-5.1)
[2020-05-29] MEDS: Insulin LISPRO 300 UNITS/3 ML VIAL SQ SCH ×2 (08:07→11:51)
[2020-05-29] MEDS: hydrALAZINE 25 MG TABLET PO SCH ×2 (08:23→15:48)
[2020-05-29] MEDS: Aspirin Enteric Coated 81 MG Tablet PO SCH (08:23)
[2020-05-29] MEDS: carvediloL 6.25 MG TABLET PO SCH (08:24)
[2020-05-29] MEDS ORDERED: Lactulose Oral Soln 20 GM/30 ML UDC PO SCH (09:15)
[2020-05-29 10:39] LABS: Fluid Source for Albumin ASCITES FLUID
[2020-05-29 10:45] VITALS: BP 146/69
[2020-05-31 07:56] LABS: F-Actin (sm muscle) Ab IgG 4 Units (0-19)
[2020-05-31 07:57] LABS: AFP Tumor Marker Non-Pregnant 4 ng/mL (0-9)
[2020-05-31 08:26] LABS: ANA IgG by ELISA NONE DETECTED (None Detected)
[2020-06-01 16:47] LABS: Serine Protease-3 Antibody 7 AU/mL (0-19)
== END 2020-05-29 16:53 | disposition home or self-care (01) | DRG 442 ==
LOC: 3ANU 13:06 → EMEROOARM 13:06 → SUATTDRO 18:04 → 3ANU 20:10
PROVIDERS: ADMIT Family Medicine; ATTEND Internal Medicine

== ENCOUNTER 2020-08-06 06:52 | Inpatient (IN) ==
[2020-08-06] MEDS ORDERED: Lidocaine/EPI 1:100k 1% 50 ML VIAL ONE (07:14)
[2020-08-06] MEDS ORDERED: Heparin 1,000 UNITS/500 mL 500 ML ONE (07:14)
[2020-08-06] MEDS ORDERED: 0.9 % Sodium Chloride 500 ML ONE (07:14)
[2020-08-06] MEDS ORDERED: *HR* FentaNYL (PF) 100 MCG/2 ML VIAL ONE (07:56)
[2020-08-06] MEDS ORDERED: *HR* Rocuronium Bromide 50 MG/5 ML VIAL ONE (07:57)
[2020-08-06] MEDS ORDERED: *HR* Labetalol 20 MG/4 ML SYRINGE IVP PRN (08:18)
[2020-08-06] MEDS ORDERED: *HR* FentaNYL (PF) 100 MCG/2 ML VIAL IVP PRN (08:18)
[2020-08-06] MEDS ORDERED: *HR* OxyCODONE Immed Rel 5 MG TABLET PO PRN ×2 (08:18→09:52)
[2020-08-06] MEDS ORDERED: *HR* Promethazine 25 MG/ML VIAL IVP PRN (08:18)
[2020-08-06] MEDS ORDERED: Albuterol 2.5 MG/3 ML NEBULIZER IH PRN (08:18)
[2020-08-06] MEDS ORDERED: Ondansetron 4 MG/2 ML VIAL IVP PRN (08:18)
[2020-08-06] MEDS ORDERED: Isovue-300 150 ML INFUS..BTL IVP ONE (09:30)
[2020-08-06] MEDS ORDERED: *HR* Dextrose 50 % in Water (Vial) 50 ML VIAL IVP PRN (09:56)
[2020-08-06] MEDS ORDERED: Dextrose Gel 15 GM/37.5 ML TUBE PO PRN ×2 (09:56)
[2020-08-06] MEDS ORDERED: D5% in Water 1,000 ML IVC PRN (09:56)
[2020-08-06] MEDS: Insulin LISPRO 300 UNITS/3 ML VIAL SQ SCH ×3 (13:49→22:04)
[2020-08-06 14:01] LABS: Basophils % 0.2 %; Immature Granulocytes % 0.5 % (0-4); Mean Corpuscular Hemoglobin 27.3 pg (28.0-33.3); Red Cell Distribution Width 15.7 % (11.5-14.5)
[2020-08-06 14:03] LABS: Eosinophils % 0.1 %; Hematocrit 28.5 % (35.3-44.9); Hemoglobin 8.8 g/dL (11.5-15.4); Immature Platelets 4.8 % (1.1-6.1); Lymphocytes # 4.8 K/mcL (0.6-4.6); Lymphocytes % 37.2 %; Mean Corpuscular HGB Conc 30.9 g/dL (31.6-35.5); Mean Corpuscular Volume 88.5 fL (83.0-100.0); Mean Platelet Volume 11.7 fL (9.4-12.4); Monocytes # 0.3 K/mcL (0.0-1.3); Monocytes % 2.2 %; Neutrophils # 7.7 K/mcL (1.6-8.9); Red Blood Count 3.22 M/mcL (3.82-4.97); Segmented Neutrophils % 59.8 %; White Blood Count 12.8 K/mcL (4.3-11.1)
[2020-08-06 14:16] LABS: INR 1.3; Prothrombin Time 15.2 Seconds (9.4-12.1)
[2020-08-06 14:20] LABS: Albumin 3.5 g/dL (3.5-5.7); Albumin/Globulin Ratio 1.8 (1.1-2.2); Bilirubin,Total 0.8 mg/dL (0.3-1.0); Calcium 8.9 mg/dL (8.6-10.3); Potassium 4.4 mEq/L (3.5-5.1); Total Protein 5.5 g/dL (6.4-8.9)
[2020-08-06 14:48] LABS: Platelet Count 89 K/mcL (140-400)
[2020-08-06] MEDS: Lactulose Oral Soln 20 GM/30 ML UDC PO SCH ×3 (16:35→22:08)
[2020-08-07] MEDS: 0.9 % Sodium Chloride 500 ML IVC SCH ×2 (00:44→08:11)
[2020-08-07 05:39] LABS: Hematocrit 29.3 % (35.3-44.9); Hemoglobin 8.9 g/dL (11.5-15.4); Immature Platelets 4.7 % (1.1-6.1); Mean Corpuscular HGB Conc 30.4 g/dL (31.6-35.5); Mean Corpuscular Hemoglobin 27.3 pg (28.0-33.3); Mean Corpuscular Volume 89.9 fL (83.0-100.0); Mean Platelet Volume 11.7 fL (9.4-12.4); Red Blood Count 3.26 M/mcL (3.82-4.97); Red Cell Distribution Width 15.6 % (11.5-14.5); White Blood Count 19.9 K/mcL (4.3-11.1)
[2020-08-07 05:59] LABS: Albumin 3.4 g/dL (3.5-5.7); Albumin/Globulin Ratio 1.7 (1.1-2.2); Bilirubin,Total 0.8 mg/dL (0.3-1.0); Potassium 4.4 mEq/L (3.5-5.1); Total Protein 5.4 g/dL (6.4-8.9)
[2020-08-07] MEDS: Lactulose Oral Soln 20 GM/30 ML UDC PO SCH ×3 (08:10→19:38)
[2020-08-07] MEDS: Insulin LISPRO 300 UNITS/3 ML VIAL SQ SCH ×4 (08:11→21:02)
[2020-08-07] MEDS ORDERED: Fluticasone Propionate Nasal 50 MCG/SPRAY BOTTLE NS PRN (08:24)
[2020-08-07] MEDS: hydrALAZINE 25 MG TABLET PO SCH ×3 (09:40→19:32)
[2020-08-07] MEDS: Furosemide 40 MG TABLET PO SCH (09:40)
[2020-08-07] MEDS: Cholecalciferol (D-3) 1,000 UNIT (25MCG) TABLET PO SCH (09:41)
[2020-08-07] MEDS: carvediloL 6.25 MG TABLET PO SCH ×2 (09:43→16:21)
[2020-08-07] MEDS ORDERED: Lidocaine -MPF 2% 5 ML VIAL SQ ONE (15:24)
[2020-08-07] MEDS ORDERED: *HR* Rocuronium Bromide 50 MG/5 ML VIAL IVP ONE (15:24)
[2020-08-07] MEDS ORDERED: *HR* Succinylcholine 200 MG/10 ML VIAL IVP ONE (15:24)
[2020-08-07] MEDS ORDERED: *HR* Propofol 200 MG/20 ML VIAL IVP ONE (15:24)
[2020-08-07] MEDS ORDERED: EPHEDrine 50 MG/ML VIAL IVP ONE (15:24)
[2020-08-07] MEDS ORDERED: Ondansetron 4 MG/2 ML VIAL IVP ONE (15:24)
[2020-08-07] MEDS ORDERED: *HR* Phenylephrine 10 MG/ML VIAL IVC ONE (15:24)
[2020-08-07 16:21] LABS: Bacteria,Urine Few per hpf (None-Few); Bilirubin,Urine Negative (Negative); Blood,Urine Negative (Negative); Clarity,Urine Clear (Clear); Color,Urine Colorless (Yellow); Glucose,Urine (UA) Normal (Normal); Hyaline Casts,Urine Few per lpf (None Seen); Ketones,Urine Negative (Negative); Leukocyte Esterase,Urine Small (Negative); Mucus,Urine Few per lpf (None-Few); Nitrite,Urine Negative (Negative); Protein,Urine Negative (Neg-Trace); RBC,Urine 0-3 per hpf (0-3); Specific Gravity,Urine 1.008 (1.010-1.025); Squamous Epithelial Cell,Urine Few per hpf (None-Few); Urobilinogen,Urine Normal (Normal)
[2020-08-07 19:26] LABS: Hemoglobin 8.5 g/dL (11.5-15.4)
[2020-08-07 19:28] LABS: Hematocrit 27.7 % (35.3-44.9)
[2020-08-07] MEDS: Piperacillin/Tazobactam 3.375 GM in 0.9 % Sodium Chloride Mini Bag 100 ML IVPB SCH (19:33)
[2020-08-08] MEDS: 0.9 % Sodium Chloride 500 ML IVC SCH (03:36)
[2020-08-08] MEDS: Piperacillin/Tazobactam 3.375 GM in 0.9 % Sodium Chloride Mini Bag 100 ML IVPB SCH ×3 (03:44→17:52)
[2020-08-08 05:29] LABS: Eosinophils % 0.2 %; Hemoglobin 8.2 g/dL (11.5-15.4); Mean Corpuscular Volume 89.3 fL (83.0-100.0); Red Cell Distribution Width 15.6 % (11.5-14.5); Segmented Neutrophils % 58.5 %
[2020-08-08 05:31] LABS: Basophils % 0.2 %; Hematocrit 26.7 % (35.3-44.9); INR 1.4; Immature Granulocytes % 0.6 % (0-4); Immature Platelets 4.4 % (1.1-6.1); Lymphocytes # 5.2 K/mcL (0.6-4.6); Lymphocytes % 31.9 %; Mean Corpuscular HGB Conc 30.7 g/dL (31.6-35.5); Mean Corpuscular Hemoglobin 27.4 pg (28.0-33.3); Mean Platelet Volume 11.9 fL (9.4-12.4); Monocytes # 1.4 K/mcL (0.0-1.3); Monocytes % 8.6 %; Neutrophils # 9.5 K/mcL (1.6-8.9); Nucleated Red Blood Cells 0.1 /100 WBC (0); Prothrombin Time 16.3 Seconds (9.4-12.1); Red Blood Count 2.99 M/mcL (3.82-4.97); White Blood Count 16.2 K/mcL (4.3-11.1)
[2020-08-08 05:35] LABS: Albumin 2.8 g/dL (3.5-5.7); Albumin/Globulin Ratio 1.5 (1.1-2.2); Calcium 8.3 mg/dL (8.6-10.3); Globulin 1.9 g/dL (2.4-3.5); Potassium 4.3 mEq/L (3.5-5.1); Total Protein 4.7 g/dL (6.4-8.9)
[2020-08-08 05:36] LABS: Platelet Count 87 K/mcL (140-400)
[2020-08-08] MEDS: Insulin LISPRO 300 UNITS/3 ML VIAL SQ SCH ×4 (07:48→21:23)
[2020-08-08] MEDS: Furosemide 40 MG TABLET PO SCH (07:50)
[2020-08-08] MEDS: hydrALAZINE 25 MG TABLET PO SCH ×3 (07:50→21:27)
[2020-08-08] MEDS: Cholecalciferol (D-3) 1,000 UNIT (25MCG) TABLET PO SCH (07:51)
[2020-08-08] MEDS: carvediloL 6.25 MG TABLET PO SCH ×2 (07:51→16:14)
[2020-08-08] MEDS: Lactulose Oral Soln 20 GM/30 ML UDC PO SCH ×3 (07:52→21:27)
[2020-08-08] MEDS: Ipratropium/Albuterol Neb 3 ML IH SCH ×3 (11:40→19:55)
[2020-08-09] MEDS: Piperacillin/Tazobactam 3.375 GM in 0.9 % Sodium Chloride Mini Bag 100 ML IVPB SCH ×3 (03:40→17:41)
[2020-08-09 04:38] LABS: Mean Corpuscular Volume 86.9 fL (83.0-100.0); Red Cell Distribution Width 15.8 % (11.5-14.5)
[2020-08-09 04:40] LABS: Hematocrit 27.3 % (35.3-44.9); Hemoglobin 8.6 g/dL (11.5-15.4); Immature Platelets 4.5 % (1.1-6.1); Mean Corpuscular HGB Conc 31.5 g/dL (31.6-35.5); Mean Corpuscular Hemoglobin 27.4 pg (28.0-33.3); Mean Platelet Volume 11.4 fL (9.4-12.4); Red Blood Count 3.14 M/mcL (3.82-4.97); White Blood Count 19.6 K/mcL (4.3-11.1)
[2020-08-09 04:55] LABS: Albumin 2.9 g/dL (3.5-5.7); Albumin/Globulin Ratio 1.5 (1.1-2.2); Bilirubin,Total 1.1 mg/dL (0.3-1.0); Calcium 8.4 mg/dL (8.6-10.3); Potassium 4.2 mEq/L (3.5-5.1); Total Protein 4.9 g/dL (6.4-8.9)
[2020-08-09 05:03] LABS: INR 1.5; Prothrombin Time 16.9 Seconds (9.4-12.1)
[2020-08-09 05:15] LABS: Platelet Count 91 K/mcL (140-400)
[2020-08-09 06:22] LABS: Lymphocytes # 3.9 K/mcL (0.6-4.6); Monocytes # 1.2 K/mcL (0.0-1.3); Neutrophils # 13.7 K/mcL (1.6-8.9)
[2020-08-09 06:23] LABS: Platelet Estimate Decreased (Normal); Reactive Lymphocytes Present (Not Present); Smudge Cells Present (Not Present)
[2020-08-09] MEDS: 0.9 % Sodium Chloride 500 ML IVC SCH (07:28)
[2020-08-09] MEDS: Lactulose Oral Soln 20 GM/30 ML UDC PO SCH ×2 (08:00→21:29)
[2020-08-09] MEDS: carvediloL 6.25 MG TABLET PO SCH ×2 (08:01→17:41)
[2020-08-09] MEDS: hydrALAZINE 25 MG TABLET PO SCH ×3 (08:01→21:28)
[2020-08-09] MEDS: Cholecalciferol (D-3) 1,000 UNIT (25MCG) TABLET PO SCH (08:01)
[2020-08-09] MEDS: Furosemide 40 MG TABLET PO SCH (08:01)
[2020-08-09] MEDS: Insulin LISPRO 300 UNITS/3 ML VIAL SQ SCH ×4 (08:01→21:29)
[2020-08-09] MEDS ORDERED: Lactulose Oral Soln 20 GM/30 ML UDC PO SCH (09:00)
[2020-08-09] MEDS: Nystatin POWDER 30 GM BOTTLE TP SCH ×2 (11:39→21:29)
[2020-08-09 13:20] LABS: Adenovirus Not Detected (Not Detect); Bordetella Pertussis Not Detected (Not Detect); Chlamydophila pneumoniae Not Detected (Not Detect); Coronavirus 229E Not Detected (Not Detect); Coronavirus HKU1 Not Detected (Not Detect); Coronavirus NL63 Not Detected (Not Detect); Coronavirus OC43 Not Detected (Not Detect); Human Metapneumovirus Not Detected (Not Detect); Human Rhinovirus/Enterovirus Not Detected (Not Detect); Influenza A Subtype 2009 H1 Not Detected (Not Detect); Influenza B Not Detected (Not Detect); Parainfluenza Virus 1 Not Detected (Not Detect); Parainfluenza Virus 2 Not Detected (Not Detect); Parainfluenza Virus 3 Not Detected (Not Detect); Parainfluenza Virus 4 Not Detected (Not Detect); Respiratory Syncytial Virus Not Detected (Not Detect)
[2020-08-09 13:21] LABS: Mycoplasma pneumoniae Not Detected (Not Detect)
[2020-08-09 13:23] LABS: SARS-CoV-2 DETECTED (Not Detect)
[2020-08-09] MEDS ORDERED: Furosemide 20 MG TABLET PO ONE (18:00)
[2020-08-10] MEDS: Piperacillin/Tazobactam 3.375 GM in 0.9 % Sodium Chloride Mini Bag 100 ML IVPB SCH ×3 (02:51→18:19)
[2020-08-10] MEDS ORDERED: Benzonatate 100 MG CAPSULE PO PRN (05:46)
[2020-08-10 06:15] LABS: INR 1.5; Prothrombin Time 16.6 Seconds (9.4-12.1)
[2020-08-10 06:20] LABS: Albumin/Globulin Ratio 1.4 (1.1-2.2); Calcium 8.7 mg/dL (8.6-10.3); Globulin 2.1 g/dL (2.4-3.5); Potassium 4.1 mEq/L (3.5-5.1); Total Protein 5.1 g/dL (6.4-8.9)
[2020-08-10 07:36] LABS: Basophils % 0.2 %; Eosinophils # 0.1 K/mcL (0.0-0.6); Eosinophils % 0.4 %; Hematocrit 28.4 % (35.3-44.9); Hemoglobin 8.8 g/dL (11.5-15.4); Immature Granulocytes % 0.7 % (0-4); Immature Platelets 4.7 % (1.1-6.1); Lymphocytes # 6.9 K/mcL (0.6-4.6); Lymphocytes % 39.5 %; Mean Corpuscular Hemoglobin 27.2 pg (28.0-33.3); Mean Corpuscular Volume 87.9 fL (83.0-100.0); Mean Platelet Volume 11.4 fL (9.4-12.4); Monocytes # 1.3 K/mcL (0.0-1.3); Monocytes % 7.5 %; Red Blood Count 3.23 M/mcL (3.82-4.97); Segmented Neutrophils % 51.7 %; White Blood Count 17.4 K/mcL (4.3-11.1)
[2020-08-10 07:40] LABS: Platelet Count 93 K/mcL (140-400)
[2020-08-10] MEDS: Insulin LISPRO 300 UNITS/3 ML VIAL SQ SCH ×4 (07:55→21:40)
[2020-08-10] MEDS: hydrALAZINE 25 MG TABLET PO SCH ×3 (08:02→20:50)
[2020-08-10] MEDS: Furosemide 40 MG TABLET PO SCH (08:03)
[2020-08-10] MEDS: Cholecalciferol (D-3) 1,000 UNIT (25MCG) TABLET PO SCH (08:03)
[2020-08-10] MEDS: Lactulose Oral Soln 20 GM/30 ML UDC PO SCH ×2 (08:03→20:50)
[2020-08-10] MEDS: carvediloL 6.25 MG TABLET PO SCH ×2 (08:03→17:25)
[2020-08-10] MEDS: Nystatin POWDER 30 GM BOTTLE TP SCH ×2 (08:04→20:51)
[2020-08-10 08:09] LABS: Platelet Estimate Decreased (Normal); Reactive Lymphocytes Present (Not Present); Smudge Cells Present (Not Present); Toxic Granulation Present (Not Present)
[2020-08-10 09:06] LABS: Lactate Dehydrogenase 179 Units/L (140-271)
[2020-08-10 09:20] LABS: C-Reactive Protein 105 mg/L (Less than 10)
[2020-08-10 09:25] LABS: Ferritin 223 ng/mL (10-120)
[2020-08-10] MEDS ORDERED: *HR* Enoxaparin 40 MG/0.4 ML SYRINGE SQ ONE (11:02)
[2020-08-11] MEDS: Piperacillin/Tazobactam 3.375 GM in 0.9 % Sodium Chloride Mini Bag 100 ML IVPB SCH ×3 (02:05→19:38)
[2020-08-11 03:10] LABS: INR 1.4; Prothrombin Time 16.3 Seconds (9.4-12.1)
[2020-08-11 03:21] LABS: Albumin 3.1 g/dL (3.5-5.7); Albumin/Globulin Ratio 1.5 (1.1-2.2); Bilirubin,Total 1.1 mg/dL (0.3-1.0); Calcium 8.8 mg/dL (8.6-10.3); Globulin 2.1 g/dL (2.4-3.5); Potassium 4.2 mEq/L (3.5-5.1); Total Protein 5.2 g/dL (6.4-8.9)
[2020-08-11] MEDS: *HR* Enoxaparin 40 MG/0.4 ML SYRINGE SQ SCH (06:36)
[2020-08-11] MEDS: Insulin LISPRO 300 UNITS/3 ML VIAL SQ SCH ×4 (09:59→22:36)
[2020-08-11] MEDS: hydrALAZINE 25 MG TABLET PO SCH ×3 (10:00→22:35)
[2020-08-11] MEDS: carvediloL 6.25 MG TABLET PO SCH ×2 (10:00→17:16)
[2020-08-11] MEDS: Furosemide 40 MG TABLET PO SCH (10:00)
[2020-08-11] MEDS: Lactulose Oral Soln 20 GM/30 ML UDC PO SCH ×2 (10:00→22:35)
[2020-08-11] MEDS: Cholecalciferol (D-3) 1,000 UNIT (25MCG) TABLET PO SCH (10:00)
[2020-08-11] MEDS: Nystatin POWDER 30 GM BOTTLE TP SCH ×2 (10:01→22:35)
[2020-08-12] MEDS ORDERED: Piperacillin/Tazobactam 3.375 GM VIAL ONE (04:34)
[2020-08-12] MEDS: Piperacillin/Tazobactam 3.375 GM in 0.9 % Sodium Chloride Mini Bag 100 ML IVPB SCH ×2 (05:01→05:03)
[2020-08-12 05:03] VITALS: BP 154/63
[2020-08-12 06:11] LABS: Hematocrit 30.1 % (35.3-44.9); Hemoglobin 9.2 g/dL (11.5-15.4); Mean Corpuscular HGB Conc 30.6 g/dL (31.6-35.5); Mean Corpuscular Hemoglobin 27.5 pg (28.0-33.3); Mean Corpuscular Volume 89.9 fL (83.0-100.0); Mean Platelet Volume 10.8 fL (9.4-12.4); Platelet Count 114 K/mcL (140-400); Red Blood Count 3.35 M/mcL (3.82-4.97); Red Cell Distribution Width 16.3 % (11.5-14.5)
[2020-08-12 06:14] LABS: INR 1.4; Prothrombin Time 16.4 Seconds (9.4-12.1)
[2020-08-12] MEDS: *HR* Enoxaparin 40 MG/0.4 ML SYRINGE SQ SCH (06:17)
[2020-08-12 06:20] LABS: Albumin 3.1 g/dL (3.5-5.7); Albumin/Globulin Ratio 1.5 (1.1-2.2); Bilirubin,Total 1.2 mg/dL (0.3-1.0); Globulin 2.1 g/dL (2.4-3.5); Potassium 3.9 mEq/L (3.5-5.1); Total Protein 5.2 g/dL (6.4-8.9)
[2020-08-12 06:29] LABS: Lactate Dehydrogenase 155 Units/L (140-271)
[2020-08-12 06:45] LABS: Ferritin 218 ng/mL (10-120)
[2020-08-12 07:46] LABS: C-Reactive Protein 55 mg/L (Less than 10)
[2020-08-12 08:56] LABS: Basophils # 0.1 K/mcL (0.0-0.2); Basophils % 0.3 %; Eosinophils # 0.1 K/mcL (0.0-0.6); Eosinophils % 0.5 %; Hematocrit 31.8 % (35.3-44.9); Hemoglobin 9.7 g/dL (11.5-15.4); Immature Granulocytes % 0.6 % (0-4); Lymphocytes # 12.2 K/mcL (0.6-4.6); Mean Corpuscular HGB Conc 30.5 g/dL (31.6-35.5); Mean Corpuscular Volume 88.6 fL (83.0-100.0); Mean Platelet Volume 11.4 fL (9.4-12.4); Monocytes # 1.2 K/mcL (0.0-1.3); Monocytes % 5.1 %; Neutrophils # 9.3 K/mcL (1.6-8.9); Nucleated Red Blood Cells 0.1 /100 WBC (0); Platelet Count 142 K/mcL (140-400); Red Blood Count 3.59 M/mcL (3.82-4.97); Segmented Neutrophils % 40.5 %
[2020-08-12] MEDS: Cholecalciferol (D-3) 1,000 UNIT (25MCG) TABLET PO SCH (09:26)
[2020-08-12] MEDS: Furosemide 40 MG TABLET PO SCH (09:26)
[2020-08-12] MEDS: carvediloL 6.25 MG TABLET PO SCH (09:26)
[2020-08-12] MEDS: hydrALAZINE 25 MG TABLET PO SCH (09:26)
[2020-08-12] MEDS: Lactulose Oral Soln 20 GM/30 ML UDC PO SCH (09:26)
[2020-08-12] MEDS: Nystatin POWDER 30 GM BOTTLE TP SCH (09:27)
[2020-08-12 12:27] LABS: Anisocytosis 1+ (Not Present)
[2020-08-12 12:30] LABS: Platelet Estimate Normal (Normal)
[2020-08-12 12:32] LABS: Smudge Cells Present (Not Present)
== END 2020-08-12 15:25 | disposition home or self-care (01) | DRG 853 ==
LOC: INTRAD 06:52 → 2NNU 06:52 → SUATTDRO 09:48 → 2NNU 11:35 → SUATTDRO 08-07 20:39 → 2ANU 08-08 14:55 → 2NENU 08-09 14:50
PROVIDERS: ADMIT Internal Medicine; ATTEND Internal Medicine

== ENCOUNTER 2020-08-21 22:39 | Inpatient (IN) ==
[2020-08-22] MEDS ORDERED: Naloxone 0.4 MG/ML INJ IVP PRN (04:48)
[2020-08-22] MEDS ORDERED: D5% in Water 1,000 ML IVC PRN (04:51)
[2020-08-22] MEDS ORDERED: Dextrose Gel 15 GM/37.5 ML TUBE PO PRN ×2 (04:51)
[2020-08-22] MEDS ORDERED: *HR* Dextrose 50 % in Water (Vial) 50 ML VIAL IVP PRN (04:51)
[2020-08-22] MEDS ORDERED: Ringers Solution, Lactated 1,000 ML IVC SCH (05:00)
[2020-08-22] MEDS: *HR* Labetalol 20 MG/4 ML SYRINGE IVP PRN (06:06)
[2020-08-22] MEDS ORDERED: Lactulose Oral Soln 20 GM/30 ML UDC PO ONE (06:15)
[2020-08-22 06:18] LABS: Basophils # 0.1 K/mcL (0.0-0.2); Basophils % 0.3 %; Eosinophils # 0.1 K/mcL (0.0-0.6); Eosinophils % 0.4 %; Hematocrit 31.2 % (35.3-44.9); Hemoglobin 9.9 g/dL (11.5-15.4); Immature Granulocytes % 0.4 % (0-4); Lymphocytes # 12.9 K/mcL (0.6-4.6); Lymphocytes % 56.4 %; Mean Corpuscular HGB Conc 31.7 g/dL (31.6-35.5); Mean Corpuscular Hemoglobin 28.4 pg (28.0-33.3); Mean Corpuscular Volume 89.4 fL (83.0-100.0); Mean Platelet Volume 11.2 fL (9.4-12.4); Monocytes # 1.2 K/mcL (0.0-1.3); Monocytes % 5.4 %; Neutrophils # 8.5 K/mcL (1.6-8.9); Platelet Count 103 K/mcL (140-400); Red Blood Count 3.49 M/mcL (3.82-4.97); Red Cell Distribution Width 18.4 % (11.5-14.5); Segmented Neutrophils % 37.1 %; White Blood Count 22.9 K/mcL (4.3-11.1)
[2020-08-22 06:32] LABS: INR 1.3; Prothrombin Time 14.7 Seconds (9.4-12.1)
[2020-08-22 06:42] LABS: Albumin 3.2 g/dL (3.5-5.7); Albumin/Globulin Ratio 1.7 (1.1-2.2); Bilirubin,Direct 0.4 mg/dL (0.0-0.2); Bilirubin,Indirect 0.8 mg/dL (0.0-1.0); Bilirubin,Total 1.2 mg/dL (0.3-1.0); Globulin 1.9 g/dL (2.4-3.5); Total Protein 5.1 g/dL (6.4-8.9)
[2020-08-22 06:49] LABS: Albumin 3.2 g/dL (3.5-5.7); Albumin/Globulin Ratio 1.7 (1.1-2.2); Bilirubin,Total 1.2 mg/dL (0.3-1.0); Globulin 1.9 g/dL (2.4-3.5); Magnesium 2.3 mg/dL (1.6-2.6); Potassium 4.5 mEq/L (3.5-5.1); Total Protein 5.1 g/dL (6.4-8.9); Troponin I 0.06 ng/mL (< 0.04)
[2020-08-22 07:17] LABS: Platelet Estimate Decreased (Normal); Reactive Lymphocytes Present (Not Present); Smudge Cells Present (Not Present)
[2020-08-22] MEDS ORDERED: Insulin LISPRO 300 UNITS/3 ML VIAL SQ SCH ×2 (07:30→21:00)
[2020-08-22] MEDS: hydrALAZINE 25 MG TABLET PO SCH ×3 (08:25→20:55)
[2020-08-22] MEDS: cefTRIAXone 1,000 MG in Water for inj. (sterile) 10 ML IVP SCH (08:25)
[2020-08-22] MEDS: Aspirin Enteric Coated 81 MG Tablet PO SCH (08:25)
[2020-08-22] MEDS: Furosemide 40 MG TABLET PO SCH (08:26)
[2020-08-22 10:10] LABS: VBG HCO3 27 mEq/L (21-27); VBG PCO2 32 mmHg (41-51); VBG PH 7.54 pH Units (7.32-7.42); VBG PO2 188 mmHg (25-50)
[2020-08-22 10:23] LABS: Adenovirus Not Detected (Not Detect); Bordetella Pertussis Not Detected (Not Detect); Chlamydophila pneumoniae Not Detected (Not Detect); Coronavirus 229E Not Detected (Not Detect); Coronavirus HKU1 Not Detected (Not Detect); Coronavirus NL63 Not Detected (Not Detect); Coronavirus OC43 Not Detected (Not Detect); Human Metapneumovirus Not Detected (Not Detect); Human Rhinovirus/Enterovirus Not Detected (Not Detect); Influenza A Subtype 2009 H1 Not Detected (Not Detect); Influenza B Not Detected (Not Detect); Mycoplasma pneumoniae Not Detected (Not Detect); Parainfluenza Virus 1 Not Detected (Not Detect); Parainfluenza Virus 2 Not Detected (Not Detect); Parainfluenza Virus 3 Not Detected (Not Detect); Parainfluenza Virus 4 Not Detected (Not Detect); Respiratory Syncytial Virus Not Detected (Not Detect); SARS-CoV-2 Not Detected (Not Detect)
[2020-08-22] MEDS: Insulin LISPRO 300 UNITS/3 ML VIAL SQ SCH ×2 (12:13→18:35)
[2020-08-22] MEDS: Lactulose Oral Soln 20 GM/30 ML UDC PO SCH ×2 (15:50→20:53)
[2020-08-22] MEDS: carvediloL 6.25 MG TABLET PO SCH (18:38)
[2020-08-22] MEDS ORDERED: Insulin DETEMIR 100 UNIT/ML X5UNITS SQ SCH (21:00)
[2020-08-22] MEDS ORDERED: Lactulose Oral Soln 20 GM/30 ML UDC PO SCH (21:00)
[2020-08-23] MEDS: Insulin LISPRO 300 UNITS/3 ML VIAL SQ SCH ×5 (02:30→21:48)
[2020-08-23 04:04] LABS: Basophils % 0.3 %; Eosinophils % 0.5 %; Hemoglobin 9.4 g/dL (11.5-15.4); Immature Granulocytes % 0.3 % (0-4); Red Cell Distribution Width 18.6 % (11.5-14.5)
[2020-08-23 04:06] LABS: Basophils # 0.1 K/mcL (0.0-0.2); Eosinophils # 0.1 K/mcL (0.0-0.6); Hematocrit 30.1 % (35.3-44.9); Immature Platelets 2.6 % (1.1-6.1); Lymphocytes % 58.8 %; Mean Corpuscular HGB Conc 31.2 g/dL (31.6-35.5); Mean Corpuscular Hemoglobin 28.1 pg (28.0-33.3); Mean Corpuscular Volume 90.1 fL (83.0-100.0); Mean Platelet Volume 11.2 fL (9.4-12.4); Monocytes # 1.4 K/mcL (0.0-1.3); Nucleated Red Blood Cells 0.1 /100 WBC (0); Red Blood Count 3.34 M/mcL (3.82-4.97); Segmented Neutrophils % 34.1 %; White Blood Count 23.9 K/mcL (4.3-11.1)
[2020-08-23 04:09] LABS: INR 1.3; Lymphocytes # 14.1 K/mcL (0.6-4.6); Neutrophils # 8.2 K/mcL (1.6-8.9); Platelet Count 94 K/mcL (140-400); Prothrombin Time 15.4 Seconds (9.4-12.1)
[2020-08-23 04:24] LABS: Albumin/Globulin Ratio 1.6 (1.1-2.2); Bilirubin,Direct 0.4 mg/dL (0.0-0.2); Bilirubin,Indirect 0.8 mg/dL (0.0-1.0); Bilirubin,Total 1.2 mg/dL (0.3-1.0); Globulin 1.9 g/dL (2.4-3.5); Magnesium 2.1 mg/dL (1.6-2.6); Potassium 4.2 mEq/L (3.5-5.1); Total Protein 4.9 g/dL (6.4-8.9)
[2020-08-23 04:32] LABS: Platelet Estimate Decreased (Normal)
[2020-08-23 04:33] LABS: Anisocytosis 1+ (Not Present); Reactive Lymphocytes Present (Not Present); Smudge Cells Present (Not Present)
[2020-08-23] MEDS: carvediloL 6.25 MG TABLET PO SCH ×2 (09:40→17:28)
[2020-08-23] MEDS: Lactulose Oral Soln 20 GM/30 ML UDC PO SCH ×3 (09:40→21:41)
[2020-08-23] MEDS: Aspirin Enteric Coated 81 MG Tablet PO SCH (09:40)
[2020-08-23] MEDS: cefTRIAXone 1,000 MG in Water for inj. (sterile) 10 ML IVP SCH (09:41)
[2020-08-23] MEDS: hydrALAZINE 25 MG TABLET PO SCH ×3 (09:45→21:40)
[2020-08-23] MEDS: Furosemide 40 MG TABLET PO SCH (09:45)
[2020-08-23] MEDS ORDERED: Acetaminophen 325 MG TABLET PO ONE (10:46)
[2020-08-23] MEDS ORDERED: Fluticasone Propionate Nasal 50 MCG/SPRAY BOTTLE NS PRN (15:23)
[2020-08-23] MEDS: predniSONE 20 MG TABLET PO SCH (17:28)
[2020-08-23] MEDS: *HR* Labetalol 20 MG/4 ML SYRINGE IVP PRN (22:50)
[2020-08-24] MEDS: Acetaminophen 325 MG TABLET PO PRN ×2 (01:40→20:49)
[2020-08-24] MEDS: *HR* Labetalol 20 MG/4 ML SYRINGE IVP PRN (02:50)
[2020-08-24 06:29] LABS: Basophils % 0.1 %; Immature Granulocytes % 0.3 % (0-4); Red Cell Distribution Width 18.4 % (11.5-14.5)
[2020-08-24 06:30] LABS: INR 1.4; Prothrombin Time 16.2 Seconds (9.4-12.1)
[2020-08-24 06:31] LABS: Hematocrit 30.7 % (35.3-44.9); Hemoglobin 9.6 g/dL (11.5-15.4); Immature Platelets 4.2 % (1.1-6.1); Lymphocytes # 16.2 K/mcL (0.6-4.6); Lymphocytes % 63.8 %; Mean Corpuscular HGB Conc 31.3 g/dL (31.6-35.5); Mean Corpuscular Volume 89.5 fL (83.0-100.0); Mean Platelet Volume 11.8 fL (9.4-12.4); Monocytes # 0.7 K/mcL (0.0-1.3); Monocytes % 2.8 %; Neutrophils # 8.4 K/mcL (1.6-8.9); Nucleated Red Blood Cells 0.2 /100 WBC (0); Red Blood Count 3.43 M/mcL (3.82-4.97); White Blood Count 25.4 K/mcL (4.3-11.1)
[2020-08-24 06:39] LABS: Platelet Count 80 K/mcL (140-400)
[2020-08-24 06:44] LABS: Albumin/Globulin Ratio 1.6 (1.1-2.2); Bilirubin,Direct 0.4 mg/dL (0.0-0.2); Bilirubin,Indirect 0.7 mg/dL (0.0-1.0); Bilirubin,Total 1.1 mg/dL (0.3-1.0); Calcium 8.7 mg/dL (8.6-10.3); Globulin 1.9 g/dL (2.4-3.5); Potassium 4.2 mEq/L (3.5-5.1); Total Protein 4.9 g/dL (6.4-8.9)
[2020-08-24 06:53] LABS: Anisocytosis 1+ (Not Present); Platelet Estimate Decreased (Normal)
[2020-08-24] MEDS: Insulin LISPRO 300 UNITS/3 ML VIAL SQ SCH ×4 (09:03→20:38)
[2020-08-24] MEDS: Lactulose Oral Soln 20 GM/30 ML UDC PO SCH ×3 (09:07→20:38)
[2020-08-24] MEDS: predniSONE 20 MG TABLET PO SCH (09:07)
[2020-08-24] MEDS: Cholecalciferol (D-3) 1,000 UNIT (25MCG) TABLET PO SCH (09:08)
[2020-08-24] MEDS: Aspirin Enteric Coated 81 MG Tablet PO SCH (09:08)
[2020-08-24] MEDS: hydrALAZINE 25 MG TABLET PO SCH ×3 (09:08→20:36)
[2020-08-24] MEDS: cefTRIAXone 1,000 MG in Water for inj. (sterile) 10 ML IVP SCH (09:09)
[2020-08-24] MEDS: Furosemide 40 MG TABLET PO SCH (09:09)
[2020-08-24] MEDS: carvediloL 6.25 MG TABLET PO SCH ×2 (09:09→16:46)
[2020-08-24] MEDS: Ondansetron 4 MG/2 ML VIAL IVP PRN (11:21)
[2020-08-25 06:10] LABS: Basophils % 0.2 %; Hemoglobin 9.8 g/dL (11.5-15.4)
[2020-08-25 06:12] LABS: Basophils # 0.1 K/mcL (0.0-0.2); Eosinophils # 0.1 K/mcL (0.0-0.6); Eosinophils % 0.3 %; Hematocrit 32.3 % (35.3-44.9); Immature Granulocytes % 0.6 % (0-4); Immature Platelets 4.5 % (1.1-6.1); Lymphocytes % 59.8 %; Mean Corpuscular HGB Conc 30.3 g/dL (31.6-35.5); Mean Corpuscular Hemoglobin 27.5 pg (28.0-33.3); Mean Corpuscular Volume 90.7 fL (83.0-100.0); Mean Platelet Volume 11.1 fL (9.4-12.4); Monocytes # 1.5 K/mcL (0.0-1.3); Monocytes % 3.8 %; Neutrophils # 13.8 K/mcL (1.6-8.9); Red Blood Count 3.56 M/mcL (3.82-4.97); Red Cell Distribution Width 18.5 % (11.5-14.5); Segmented Neutrophils % 35.3 %
[2020-08-25 06:17] LABS: Lymphocytes # 23.4 K/mcL (0.6-4.6); Platelet Count 95 K/mcL (140-400); White Blood Count 39.2 K/mcL (4.3-11.1)
[2020-08-25 06:24] LABS: INR 1.3
[2020-08-25 06:33] LABS: Albumin 3.1 g/dL (3.5-5.7); Albumin/Globulin Ratio 1.6 (1.1-2.2); Bilirubin,Direct 0.3 mg/dL (0.0-0.2); Bilirubin,Indirect 0.7 mg/dL (0.0-1.0); Potassium 4.2 mEq/L (3.5-5.1); Total Protein 5.1 g/dL (6.4-8.9)
[2020-08-25 06:37] LABS: Platelet Estimate Decreased (Normal); Smudge Cells Present (Not Present)
[2020-08-25 06:38] LABS: Anisocytosis 1+ (Not Present)
[2020-08-25] MEDS: Insulin LISPRO 300 UNITS/3 ML VIAL SQ SCH ×4 (07:18→20:49)
[2020-08-25] MEDS: cefTRIAXone 1,000 MG in Water for inj. (sterile) 10 ML IVP SCH (07:25)
[2020-08-25] MEDS: predniSONE 20 MG TABLET PO SCH (07:26)
[2020-08-25] MEDS: Lactulose Oral Soln 20 GM/30 ML UDC PO SCH ×4 (07:26→20:45)
[2020-08-25] MEDS: Aspirin Enteric Coated 81 MG Tablet PO SCH (07:27)
[2020-08-25] MEDS: carvediloL 6.25 MG TABLET PO SCH ×2 (07:27→16:22)
[2020-08-25] MEDS: hydrALAZINE 25 MG TABLET PO SCH ×3 (07:27→22:15)
[2020-08-25] MEDS: Furosemide 40 MG TABLET PO SCH (07:27)
[2020-08-25] MEDS: Cholecalciferol (D-3) 1,000 UNIT (25MCG) TABLET PO SCH (07:27)
[2020-08-26 05:45] LABS: INR 1.3; Prothrombin Time 14.8 Seconds (9.4-12.1)
[2020-08-26 05:50] LABS: Basophils % 0.2 %; Eosinophils % 0.1 %; Hemoglobin 9.7 g/dL (11.5-15.4); Immature Granulocytes % 0.5 % (0-4); Mean Platelet Volume 11.5 fL (9.4-12.4); Monocytes % 3.4 %; Red Cell Distribution Width 18.6 % (11.5-14.5)
[2020-08-26 05:52] LABS: Basophils # 0.1 K/mcL (0.0-0.2); Hematocrit 32.5 % (35.3-44.9); Lymphocytes # 24.4 K/mcL (0.6-4.6); Lymphocytes % 63.3 %; Mean Corpuscular HGB Conc 29.8 g/dL (31.6-35.5); Mean Corpuscular Hemoglobin 28.4 pg (28.0-33.3); Monocytes # 1.3 K/mcL (0.0-1.3); Neutrophils # 12.6 K/mcL (1.6-8.9); Platelet Count 100 K/mcL (140-400); Red Blood Count 3.42 M/mcL (3.82-4.97); Segmented Neutrophils % 32.5 %
[2020-08-26 05:53] LABS: Albumin 2.9 g/dL (3.5-5.7); Albumin/Globulin Ratio 1.5 (1.1-2.2); Bilirubin,Direct 0.3 mg/dL (0.0-0.2); Bilirubin,Indirect 0.6 mg/dL (0.0-1.0); Bilirubin,Total 0.9 mg/dL (0.3-1.0); Calcium 8.6 mg/dL (8.6-10.3); Globulin 1.9 g/dL (2.4-3.5); Potassium 4.2 mEq/L (3.5-5.1); Total Protein 4.8 g/dL (6.4-8.9)
[2020-08-26 06:00] LABS: White Blood Count 38.6 K/mcL (4.3-11.1)
[2020-08-26 06:56] LABS: Anisocytosis 1+ (Not Present); Platelet Estimate Slight Decrease (Normal); Poikilocytosis 1+ (Not Present); Smudge Cells Present (Not Present)
[2020-08-26] MEDS: Insulin LISPRO 300 UNITS/3 ML VIAL SQ SCH ×4 (08:48→22:21)
[2020-08-26] MEDS: carvediloL 6.25 MG TABLET PO SCH ×2 (08:49→17:34)
[2020-08-26] MEDS: Cholecalciferol (D-3) 1,000 UNIT (25MCG) TABLET PO SCH (08:50)
[2020-08-26] MEDS: hydrALAZINE 25 MG TABLET PO SCH ×3 (08:50→22:24)
[2020-08-26] MEDS: Aspirin Enteric Coated 81 MG Tablet PO SCH (08:50)
[2020-08-26] MEDS: cefTRIAXone 1,000 MG in Water for inj. (sterile) 10 ML IVP SCH (08:50)
[2020-08-26] MEDS: Lactulose Oral Soln 20 GM/30 ML UDC PO SCH ×3 (08:52→22:25)
[2020-08-26] MEDS: Acetaminophen 325 MG TABLET PO PRN (22:24)
[2020-08-26] MEDS ORDERED: *HR* OxyCODONE/APAP 5/325 TABLET PO ONE (22:26)
[2020-08-27] MEDS: carvediloL 6.25 MG TABLET PO SCH ×3 (01:11→17:18)
[2020-08-27 05:50] LABS: Basophils # 0.1 K/mcL (0.0-0.2); Basophils % 0.2 %; Eosinophils # 0.1 K/mcL (0.0-0.6); Eosinophils % 0.4 %; Hematocrit 31.7 % (35.3-44.9); Hemoglobin 9.9 g/dL (11.5-15.4); Immature Granulocytes % 0.5 % (0-4); Lymphocytes # 19.5 K/mcL (0.6-4.6); Mean Corpuscular HGB Conc 31.2 g/dL (31.6-35.5); Mean Corpuscular Hemoglobin 28.6 pg (28.0-33.3); Mean Corpuscular Volume 91.6 fL (83.0-100.0); Mean Platelet Volume 11.6 fL (9.4-12.4); Monocytes # 1.1 K/mcL (0.0-1.3); Monocytes % 3.5 %; Red Blood Count 3.46 M/mcL (3.82-4.97); Red Cell Distribution Width 18.4 % (11.5-14.5); Segmented Neutrophils % 32.4 %
[2020-08-27 05:52] LABS: Platelet Count 79 K/mcL (140-400)
[2020-08-27 06:01] LABS: Albumin 2.9 g/dL (3.5-5.7); Albumin/Globulin Ratio 1.6 (1.1-2.2); Bilirubin,Direct 0.2 mg/dL (0.0-0.2); Bilirubin,Indirect 0.7 mg/dL (0.0-1.0); Bilirubin,Total 0.9 mg/dL (0.3-1.0); Calcium 8.6 mg/dL (8.6-10.3); Globulin 1.8 g/dL (2.4-3.5); Potassium 4.3 mEq/L (3.5-5.1); Total Protein 4.7 g/dL (6.4-8.9)
[2020-08-27 06:08] LABS: INR 1.3; Prothrombin Time 14.4 Seconds (9.4-12.1)
[2020-08-27 06:19] LABS: Platelet Estimate Decreased (Normal); Smudge Cells Present (Not Present)
[2020-08-27 06:20] LABS: Reactive Lymphocytes Present (Not Present)
[2020-08-27] MEDS: Insulin LISPRO 300 UNITS/3 ML VIAL SQ SCH ×4 (07:40→22:04)
[2020-08-27] MEDS: Cholecalciferol (D-3) 1,000 UNIT (25MCG) TABLET PO SCH (07:44)
[2020-08-27] MEDS: Aspirin Enteric Coated 81 MG Tablet PO SCH (07:44)
[2020-08-27] MEDS: hydrALAZINE 25 MG TABLET PO SCH ×3 (07:45→22:04)
[2020-08-27] MEDS: Lactulose Oral Soln 20 GM/30 ML UDC PO SCH ×2 (07:45→22:05)
[2020-08-27] MEDS: Acetaminophen 325 MG TABLET PO PRN (22:04)
[2020-08-27] MEDS: Ondansetron 4 MG/2 ML VIAL IVP PRN (23:30)
[2020-08-28 00:29] LABS: Bilirubin,Urine Negative (Negative); Blood,Urine Negative (Negative); Clarity,Urine Turbid (Clear); Color,Urine Yellow (Yellow); Glucose,Urine (UA) Normal (Normal); Hyaline Casts,Urine Few per lpf (None Seen); Ketones,Urine Negative (Negative); Leukocyte Esterase,Urine Large (Negative); Mucus,Urine Few per lpf (None-Few); Nitrite,Urine Negative (Negative); PH,Urine 5.5 pH Units (5.0-8.0); Protein,Urine Trace mg/dL (Neg-Trace); Specific Gravity,Urine 1.019 (1.010-1.025); Squamous Epithelial Cell,Urine Moderate per hpf (None-Few); Urobilinogen,Urine Normal (Normal); WBC,Urine 50-100 per hpf (0-3)
[2020-08-28] MEDS ORDERED: *HR* OxyCODONE/APAP 5/325 TABLET PO ONE (03:45)
[2020-08-28 07:09] LABS: INR 1.3; Prothrombin Time 14.6 Seconds (9.4-12.1)
[2020-08-28 07:12] LABS: Hematocrit 30.7 % (35.3-44.9); Hemoglobin 9.6 g/dL (11.5-15.4); Immature Platelets 5.4 % (1.1-6.1); Mean Corpuscular HGB Conc 31.3 g/dL (31.6-35.5); Mean Corpuscular Hemoglobin 28.6 pg (28.0-33.3); Mean Corpuscular Volume 91.4 fL (83.0-100.0); Red Blood Count 3.36 M/mcL (3.82-4.97); Red Cell Distribution Width 18.5 % (11.5-14.5)
[2020-08-28 07:15] LABS: Platelet Count 66 K/mcL (140-400); White Blood Count 30.3 K/mcL (4.3-11.1)
[2020-08-28 07:22] LABS: Albumin 2.7 g/dL (3.5-5.7); Albumin/Globulin Ratio 1.6 (1.1-2.2); Bilirubin,Direct 0.3 mg/dL (0.0-0.2); Bilirubin,Indirect 0.6 mg/dL (0.0-1.0); Bilirubin,Total 0.9 mg/dL (0.3-1.0); Calcium 8.2 mg/dL (8.6-10.3); Globulin 1.7 g/dL (2.4-3.5); Potassium 4.6 mEq/L (3.5-5.1); Total Protein 4.4 g/dL (6.4-8.9)
[2020-08-28] MEDS: Insulin LISPRO 300 UNITS/3 ML VIAL SQ SCH ×4 (07:25→20:25)
[2020-08-28] MEDS: Lactulose Oral Soln 20 GM/30 ML UDC PO SCH ×2 (07:35→20:28)
[2020-08-28] MEDS: Cholecalciferol (D-3) 1,000 UNIT (25MCG) TABLET PO SCH (07:36)
[2020-08-28] MEDS: carvediloL 6.25 MG TABLET PO SCH ×2 (07:36→17:12)
[2020-08-28] MEDS: hydrALAZINE 25 MG TABLET PO SCH ×3 (07:36→20:23)
[2020-08-28] MEDS: Aspirin Enteric Coated 81 MG Tablet PO SCH (07:36)
[2020-08-28 07:55] LABS: Anisocytosis 1+ (Not Present); Lymphocytes # 13.9 K/mcL (0.6-4.6); Neutrophils # 16.4 K/mcL (1.6-8.9); Platelet Estimate Decreased (Normal)
[2020-08-28 07:56] LABS: Poikilocytosis 1+ (Not Present); Smudge Cells Present (Not Present); Toxic Granulation Present (Not Present)
[2020-08-28] MEDS: Ondansetron 4 MG/2 ML VIAL IVP PRN ×2 (15:17→23:01)
[2020-08-29 05:09] LABS: Basophils % 0.2 %; Eosinophils % 0.6 %; Hemoglobin 9.6 g/dL (11.5-15.4)
[2020-08-29 05:11] LABS: Basophils # 0.1 K/mcL (0.0-0.2); Eosinophils # 0.2 K/mcL (0.0-0.6); Hematocrit 30.4 % (35.3-44.9); Immature Granulocytes % 0.5 % (0-4); Immature Platelets 5.8 % (1.1-6.1); Lymphocytes % 67.1 %; Mean Corpuscular HGB Conc 31.6 g/dL (31.6-35.5); Mean Corpuscular Volume 88.6 fL (83.0-100.0); Mean Platelet Volume 11.3 fL (9.4-12.4); Monocytes # 1.2 K/mcL (0.0-1.3); Monocytes % 3.5 %; Neutrophils # 9.7 K/mcL (1.6-8.9); Nucleated Red Blood Cells 0.1 /100 WBC (0); Red Blood Count 3.43 M/mcL (3.82-4.97); Red Cell Distribution Width 18.7 % (11.5-14.5); Segmented Neutrophils % 28.1 %
[2020-08-29 05:15] LABS: Lymphocytes # 23.2 K/mcL (0.6-4.6); Platelet Count 74 K/mcL (140-400)
[2020-08-29 05:17] LABS: White Blood Count 34.6 K/mcL (4.3-11.1)
[2020-08-29 05:26] LABS: Albumin 2.9 g/dL (3.5-5.7); Albumin/Globulin Ratio 1.7 (1.1-2.2); Calcium 8.5 mg/dL (8.6-10.3); Globulin 1.7 g/dL (2.4-3.5); Total Protein 4.6 g/dL (6.4-8.9)
[2020-08-29 05:43] LABS: Anisocytosis 1+ (Not Present); Platelet Estimate Decreased (Normal); Smudge Cells Present (Not Present)
[2020-08-29 08:12] VITALS: BP 164/68
[2020-08-29] MEDS: carvediloL 6.25 MG TABLET PO SCH (09:01)
[2020-08-29] MEDS: Cholecalciferol (D-3) 1,000 UNIT (25MCG) TABLET PO SCH (09:01)
[2020-08-29] MEDS: Aspirin Enteric Coated 81 MG Tablet PO SCH (09:01)
[2020-08-29] MEDS: Lactulose Oral Soln 20 GM/30 ML UDC PO SCH (09:01)
[2020-08-29] MEDS: Insulin LISPRO 300 UNITS/3 ML VIAL SQ SCH (09:04)
[2020-08-29] MEDS: hydrALAZINE 25 MG TABLET PO SCH (09:06)
[2020-08-29] MEDS: Ondansetron 4 MG/2 ML VIAL IVP PRN (09:45)
[2020-08-31 07:49] LABS: Cytomegalovirus DNA (PCR) NOT DETECTED
== END 2020-08-29 11:48 | DRG 441 ==
LOC: 3ANU → SUATTDRO 08-22 12:08
PROVIDERS: ADMIT Family Medicine; ATTEND Family Medicine

== ENCOUNTER 2020-10-21 14:19 | Inpatient (IN) ==
[2020-10-21] MEDS ORDERED: Isovue-370 500 ML BOTTLE IVP ONE (15:35)
[2020-10-21 16:12] LABS: Hemoglobin 10.7 g/dL (11.5-15.4); Nucleated Red Blood Cells 0.1 /100 WBC (0)
[2020-10-21 16:14] LABS: Hematocrit 32.5 % (35.3-44.9); Mean Corpuscular HGB Conc 32.9 g/dL (31.6-35.5); Mean Corpuscular Hemoglobin 28.9 pg (28.0-33.3); Mean Corpuscular Volume 87.8 fL (83.0-100.0); Mean Platelet Volume 12.1 fL (9.4-12.4); Platelet Count 108 K/mcL (140-400); Red Cell Distribution Width 16.1 % (11.5-14.5)
[2020-10-21 16:37] LABS: White Blood Count 38.2 K/mcL (4.3-11.1)
[2020-10-21 16:40] LABS: Albumin 2.3 g/dL (3.5-5.7); Albumin/Globulin Ratio 1.3 (1.1-2.2); Bilirubin,Direct 0.5 mg/dL (0.0-0.2); Bilirubin,Indirect 0.7 mg/dL (0.0-1.0); Bilirubin,Total 1.2 mg/dL (0.3-1.0); Calcium 8.1 mg/dL (8.6-10.3); Globulin 1.8 g/dL (2.4-3.5); Potassium 3.4 mEq/L (3.5-5.1); Total Protein 4.1 g/dL (6.4-8.9); Troponin I 0.05 ng/mL (< 0.04)
[2020-10-21 17:03] LABS: Lymphocytes # 17.6 K/mcL (0.6-4.6); Monocytes # 1.5 K/mcL (0.0-1.3); Neutrophils # 19.1 K/mcL (1.6-8.9)
[2020-10-21 17:03] LABS: Bilirubin,Urine Negative (Negative); Blood,Urine Negative (Negative); Clarity,Urine Clear (Clear); Color,Urine Yellow (Yellow); Glucose,Urine (UA) Normal (Normal); Ketones,Urine Negative (Negative); Leukocyte Esterase,Urine Negative (Negative); Nitrite,Urine Negative (Negative); PH,Urine 5.5 pH Units (5.0-8.0); Protein,Urine Negative (Neg-Trace); Specific Gravity,Urine 1.018 (1.010-1.025); Urobilinogen,Urine Normal (Normal)
[2020-10-21 17:04] LABS: Platelet Estimate Slight Decrease (Normal); Reactive Lymphocytes Present (Not Present); Smudge Cells Present (Not Present)
[2020-10-21] MEDS ORDERED: Aspirin 325 MG TABLET PO STA (17:07)
[2020-10-21] MEDS ORDERED: Naloxone 0.4 MG/ML INJ IVP PRN (19:43)
[2020-10-22] MEDS ORDERED: D5% in Water 1,000 ML IVC PRN (00:35)
[2020-10-22] MEDS ORDERED: Dextrose Gel 15 GM/37.5 ML TUBE PO PRN ×2 (00:35)
[2020-10-22] MEDS: Lactulose Oral Soln 20 GM/30 ML UDC PO SCH ×3 (00:51→19:53)
[2020-10-22 01:44] LABS: INR 1.3; Prothrombin Time 14.5 Seconds (9.4-12.1)
[2020-10-22 02:06] LABS: Hemoglobin 10.1 g/dL (11.5-15.4); Immature Platelets 5.5 % (1.1-6.1); Mean Corpuscular HGB Conc 32.6 g/dL (31.6-35.5); Mean Corpuscular Hemoglobin 28.1 pg (28.0-33.3); Mean Corpuscular Volume 86.1 fL (83.0-100.0); Mean Platelet Volume 11.7 fL (9.4-12.4); Red Blood Count 3.6 M/mcL (3.82-4.97); Red Cell Distribution Width 16.1 % (11.5-14.5)
[2020-10-22 02:08] LABS: White Blood Count 37.5 K/mcL (4.3-11.1)
[2020-10-22 02:14] LABS: Calcium 7.9 mg/dL (8.6-10.3); Potassium 4.2 mEq/L (3.5-5.1)
[2020-10-22] MEDS: *HR* Dextrose 50 % in Water (Vial) 50 ML VIAL IVP PRN ×2 (02:56→05:45)
[2020-10-22] MEDS: Insulin LISPRO 300 UNITS/3 ML VIAL SUBQ SCH ×3 (09:11→16:59)
[2020-10-22] MEDS: Aspirin Enteric Coated 81 MG Tablet PO SCH (10:14)
[2020-10-23 07:28] LABS: Hematocrit 30.7 % (35.3-44.9); Immature Platelets 3.3 % (1.1-6.1); Mean Corpuscular HGB Conc 32.6 g/dL (31.6-35.5); Mean Platelet Volume 11.4 fL (9.4-12.4); Nucleated Red Blood Cells 0.2 /100 WBC (0); Red Blood Count 3.45 M/mcL (3.82-4.97); Red Cell Distribution Width 16.6 % (11.5-14.5)
[2020-10-23] MEDS: Insulin LISPRO 300 UNITS/3 ML VIAL SUBQ SCH ×3 (07:37→17:05)
[2020-10-23 07:39] LABS: Platelet Count 89 K/mcL (140-400)
[2020-10-23 07:48] LABS: White Blood Count 32.2 K/mcL (4.3-11.1)
[2020-10-23] MEDS: Spironolactone 12.5 MG TABLET PO SCH (09:00)
[2020-10-23] MEDS: Aspirin Enteric Coated 81 MG Tablet PO SCH (09:00)
[2020-10-23] MEDS: Lactulose Oral Soln 20 GM/30 ML UDC PO SCH ×2 (09:01→19:46)
[2020-10-23 09:21] LABS: Lymphocytes # 16.1 K/mcL (0.6-4.6); Monocytes # 0.6 K/mcL (0.0-1.3); Neutrophils # 15.5 K/mcL (1.6-8.9); Platelet Estimate Decreased (Normal); Reactive Lymphocytes Present (Not Present); Smudge Cells Present (Not Present)
[2020-10-23 09:38] LABS: Calcium 7.8 mg/dL (8.6-10.3); Magnesium 2.6 mg/dL (1.6-2.6); Phosphorous 3.2 mg/dL (2.7-4.5); Potassium 4.6 mEq/L (3.5-5.1)
[2020-10-23 10:54] LABS: Mean Corpuscular Hemoglobin 28.6 pg (28.0-33.3); Platelet Count 105 K/mcL (140-400)
[2020-10-23 10:56] LABS: Hematocrit 31.5 % (35.3-44.9); Hemoglobin 10.3 g/dL (11.5-15.4); Immature Platelets 3.1 % (1.1-6.1); Mean Corpuscular HGB Conc 32.7 g/dL (31.6-35.5); Mean Corpuscular Volume 87.5 fL (83.0-100.0); Mean Platelet Volume 11.1 fL (9.4-12.4); Nucleated Red Blood Cells 0.1 /100 WBC (0); Red Cell Distribution Width 16.6 % (11.5-14.5)
[2020-10-23 11:09] LABS: White Blood Count 34.8 K/mcL (4.3-11.1)
[2020-10-23 11:41] LABS: Eosinophils # 0.4 K/mcL (0.0-0.6); Lymphocytes # 8.7 K/mcL (0.6-4.6); Monocytes # 1.7 K/mcL (0.0-1.3); Platelet Estimate Decreased (Normal); Reactive Lymphocytes Present (Not Present); Smudge Cells Present (Not Present)
[2020-10-24 00:28] LABS: Adenovirus Not Detected (Not Detect); Coronavirus 229E Not Detected (Not Detect); Coronavirus HKU1 Not Detected (Not Detect); Coronavirus NL63 Not Detected (Not Detect); Coronavirus OC43 Not Detected (Not Detect)
[2020-10-24 00:29] LABS: Bordetella Pertussis Not Detected (Not Detect); Chlamydophila pneumoniae Not Detected (Not Detect); Human Metapneumovirus Not Detected (Not Detect); Human Rhinovirus/Enterovirus Not Detected (Not Detect); Influenza A Subtype 2009 H1 Not Detected (Not Detect); Influenza B Not Detected (Not Detect); Mycoplasma pneumoniae Not Detected (Not Detect); Parainfluenza Virus 1 Not Detected (Not Detect); Parainfluenza Virus 2 Not Detected (Not Detect); Parainfluenza Virus 3 Not Detected (Not Detect); Parainfluenza Virus 4 Not Detected (Not Detect); Respiratory Syncytial Virus Not Detected (Not Detect); SARS-CoV-2 Not Detected (Not Detect)
[2020-10-24 01:55] LABS: Hemoglobin 10.1 g/dL (11.5-15.4); Nucleated Red Blood Cells 0.1 /100 WBC (0)
[2020-10-24 01:57] LABS: Hematocrit 31.1 % (35.3-44.9); Mean Corpuscular HGB Conc 32.5 g/dL (31.6-35.5); Mean Corpuscular Hemoglobin 28.8 pg (28.0-33.3); Mean Corpuscular Volume 88.6 fL (83.0-100.0); Mean Platelet Volume 11.7 fL (9.4-12.4); Platelet Count 103 K/mcL (140-400); Red Blood Count 3.51 M/mcL (3.82-4.97); Red Cell Distribution Width 16.7 % (11.5-14.5)
[2020-10-24 02:00] LABS: INR 1.3; Prothrombin Time 14.6 Seconds (9.4-12.1)
[2020-10-24 02:14] LABS: White Blood Count 33.2 K/mcL (4.3-11.1)
[2020-10-24 02:32] LABS: Alanine Aminotransferase 29 Units/L (7-52); Albumin 2.1 g/dL (3.5-5.7); Albumin/Globulin Ratio 1.3 (1.1-2.2); Alkaline Phosphatase 384 Units/L (34-104); Aspartate Amino Transferase 52 Units/L (13-39); BUN/Creatinine Ratio 26 (6-26); Bilirubin,Direct 0.3 mg/dL (0.0-0.2); Bilirubin,Indirect 0.7 mg/dL (0.0-1.0); Blood Urea Nitrogen 42 mg/dL (8-23); Calcium 7.7 mg/dL (8.6-10.3); Carbon Dioxide 19 mEq/L (23-29); Chloride 112 mEq/L (98-107); Ferritin 390 ng/mL (10-120); Globulin 1.6 g/dL (2.4-3.5); Glucose 96 mg/dL (70-105); Iron 36 mcg/dL (50-170); Magnesium 2.5 mg/dL (1.6-2.6); Osmolality,Calculated 296 (280-300); Sodium 138 mEq/L (136-145); Total Protein 3.7 g/dL (6.4-8.9); Transferrin < 75 mg/dL (203-362); eGFR For African Americans 38 (> 60); eGFR For Non-African Americans 31 (> 60)
[2020-10-24 02:35] LABS: Folate 6.3 ng/mL (3.0-16.0)
[2020-10-24 02:37] LABS: Vitamin B12 > 1500 pg/mL (250-1100)
[2020-10-24 03:00] LABS: Basophils # 0.7 K/mcL (0.0-0.2); Lymphocytes # 7.3 K/mcL (0.6-4.6); Monocytes # 1.3 K/mcL (0.0-1.3); Neutrophils # 23.9 K/mcL (1.6-8.9); Platelet Estimate Decreased (Normal); Smudge Cells Present (Not Present)
[2020-10-24] MEDS: Insulin LISPRO 300 UNITS/3 ML VIAL SUBQ SCH ×3 (08:09→16:44)
[2020-10-24] MEDS: Ondansetron ODT 4 MG TAB.RAPDIS SL PRN (08:17)
[2020-10-24] MEDS: Lactulose Oral Soln 20 GM/30 ML UDC PO SCH ×2 (08:25→20:48)
[2020-10-24] MEDS: Spironolactone 12.5 MG TABLET PO SCH (08:25)
[2020-10-24] MEDS: Aspirin Enteric Coated 81 MG Tablet PO SCH (08:25)
[2020-10-24] MEDS ORDERED: Metoprolol XL (24 HR) Succ 25 MG TAB.ER.24H PO SCH (09:00)
[2020-10-24] MEDS: hydrALAZINE 25 MG TABLET PO SCH ×3 (10:37→20:47)
[2020-10-24] MEDS: carvediloL 6.25 MG TABLET PO SCH (16:44)
[2020-10-25 01:42] LABS: Basophils % 0.3 %; Immature Granulocytes % 0.4 % (0-4); Monocytes % 5.3 %; Red Cell Distribution Width 16.2 % (11.5-14.5)
[2020-10-25 01:44] LABS: Basophils # 0.1 K/mcL (0.0-0.2); Eosinophils % 0.4 %; Hematocrit 30.9 % (35.3-44.9); Immature Platelets 4.1 % (1.1-6.1); Lymphocytes # 24.7 K/mcL (0.6-4.6); Mean Corpuscular HGB Conc 32.4 g/dL (31.6-35.5); Mean Corpuscular Volume 86.6 fL (83.0-100.0); Mean Platelet Volume 12.1 fL (9.4-12.4); Monocytes # 1.9 K/mcL (0.0-1.3); Neutrophils # 8.3 K/mcL (1.6-8.9); Red Blood Count 3.57 M/mcL (3.82-4.97); Segmented Neutrophils % 23.6 %
[2020-10-25 01:45] LABS: Eosinophils # 0.1 K/mcL (0.0-0.6); Platelet Count 87 K/mcL (140-400)
[2020-10-25 01:49] LABS: White Blood Count 35.3 K/mcL (4.3-11.1)
[2020-10-25 02:03] LABS: Albumin 1.9 g/dL (3.5-5.7); Albumin/Globulin Ratio 1.1 (1.1-2.2); Anisocytosis 1+ (Not Present); Bilirubin,Direct 0.2 mg/dL (0.0-0.2); Bilirubin,Indirect 0.9 mg/dL (0.0-1.0); Bilirubin,Total 1.1 mg/dL (0.3-1.0); Calcium 7.6 mg/dL (8.6-10.3); Globulin 1.7 g/dL (2.4-3.5); Magnesium 2.4 mg/dL (1.6-2.6); Platelet Estimate Decreased (Normal); Potassium 4.6 mEq/L (3.5-5.1); Reactive Lymphocytes Present (Not Present); Smudge Cells Present (Not Present); Total Protein 3.6 g/dL (6.4-8.9)
[2020-10-25] MEDS: Insulin LISPRO 300 UNITS/3 ML VIAL SUBQ SCH ×3 (07:53→17:48)
[2020-10-25] MEDS: carvediloL 6.25 MG TABLET PO SCH ×2 (08:00→17:48)
[2020-10-25] MEDS: Spironolactone 12.5 MG TABLET PO SCH (08:00)
[2020-10-25] MEDS: hydrALAZINE 25 MG TABLET PO SCH (08:00)
[2020-10-25] MEDS: Aspirin Enteric Coated 81 MG Tablet PO SCH (08:00)
[2020-10-25] MEDS: Lactulose Oral Soln 20 GM/30 ML UDC PO SCH ×2 (08:00→20:43)
[2020-10-26 05:22] LABS: Mean Corpuscular Hemoglobin 28.2 pg (28.0-33.3); Nucleated Red Blood Cells 0.1 /100 WBC (0)
[2020-10-26 05:24] LABS: Hematocrit 32.6 % (35.3-44.9); Hemoglobin 10.6 g/dL (11.5-15.4); Mean Corpuscular HGB Conc 32.5 g/dL (31.6-35.5); Mean Corpuscular Volume 86.7 fL (83.0-100.0); Mean Platelet Volume 11.5 fL (9.4-12.4); Platelet Count 112 K/mcL (140-400); Red Blood Count 3.76 M/mcL (3.82-4.97); Red Cell Distribution Width 16.3 % (11.5-14.5)
[2020-10-26 05:29] LABS: White Blood Count 40.8 K/mcL (4.3-11.1)
[2020-10-26 05:41] LABS: Calcium 8.1 mg/dL (8.6-10.3); Magnesium 2.5 mg/dL (1.6-2.6); Potassium 4.3 mEq/L (3.5-5.1)
[2020-10-26 06:10] LABS: Anisocytosis 1+ (Not Present); Lymphocytes # 7.3 K/mcL (0.6-4.6); Monocytes # 0.8 K/mcL (0.0-1.3); Neutrophils # 30.2 K/mcL (1.6-8.9); Platelet Estimate Slight Decrease (Normal); Reactive Lymphocytes Present (Not Present); Smudge Cells Present (Not Present); Toxic Granulation Present (Not Present)
[2020-10-26] MEDS: Lactulose Oral Soln 20 GM/30 ML UDC PO SCH ×3 (08:37→20:29)
[2020-10-26] MEDS: Spironolactone 12.5 MG TABLET PO SCH (08:39)
[2020-10-26] MEDS: Aspirin Enteric Coated 81 MG Tablet PO SCH (08:39)
[2020-10-26] MEDS: Insulin LISPRO 300 UNITS/3 ML VIAL SUBQ SCH ×3 (08:39→17:58)
[2020-10-26] MEDS: carvediloL 6.25 MG TABLET PO SCH ×2 (08:39→18:14)
[2020-10-26] MEDS: Ondansetron ODT 4 MG TAB.RAPDIS SL PRN (09:11)
[2020-10-26 12:41] LABS: Albumin 2.1 g/dL (3.5-5.7); Albumin/Globulin Ratio 1.2 (1.1-2.2); Bilirubin,Direct 0.4 mg/dL (0.0-0.2); Bilirubin,Indirect 0.7 mg/dL (0.0-1.0); Bilirubin,Total 1.1 mg/dL (0.3-1.0); Globulin 1.8 g/dL (2.4-3.5); Total Protein 3.9 g/dL (6.4-8.9)
[2020-10-27 06:25] LABS: Immature Platelets 3.6 % (1.1-6.1); Mean Corpuscular HGB Conc 33.3 g/dL (31.6-35.5); Mean Corpuscular Hemoglobin 28.7 pg (28.0-33.3); Mean Platelet Volume 11.6 fL (9.4-12.4); Nucleated Red Blood Cells 0.1 /100 WBC (0); Platelet Count 110 K/mcL (140-400); Red Blood Count 3.49 M/mcL (3.82-4.97); Red Cell Distribution Width 16.5 % (11.5-14.5)
[2020-10-27 06:29] LABS: White Blood Count 38.6 K/mcL (4.3-11.1)
[2020-10-27 06:44] LABS: Magnesium 2.5 mg/dL (1.6-2.6); Potassium 4.3 mEq/L (3.5-5.1)
[2020-10-27 06:48] LABS: Lymphocytes # 11.6 K/mcL (0.6-4.6); Monocytes # 0.8 K/mcL (0.0-1.3); Neutrophils # 26.3 K/mcL (1.6-8.9); Reactive Lymphocytes Present (Not Present); Smudge Cells Present (Not Present); Toxic Granulation Present (Not Present)
[2020-10-27 06:49] LABS: Platelet Estimate Slight Decrease (Normal)
[2020-10-27] MEDS: Insulin LISPRO 300 UNITS/3 ML VIAL SUBQ SCH ×2 (09:12→13:39)
[2020-10-27] MEDS: carvediloL 6.25 MG TABLET PO SCH ×2 (09:22→17:32)
[2020-10-27] MEDS: Spironolactone 12.5 MG TABLET PO SCH (09:22)
[2020-10-27] MEDS: Aspirin Enteric Coated 81 MG Tablet PO SCH (09:22)
[2020-10-27] MEDS: Lactulose Oral Soln 20 GM/30 ML UDC PO SCH ×3 (09:23→21:03)
[2020-10-27] MEDS ORDERED: *HR* Promethazine 25 MG/ML VIAL IM ONE (17:05)
[2020-10-28 06:44] VITALS: BP 144/69
[2020-10-28] MEDS: carvediloL 6.25 MG TABLET PO SCH ×2 (07:25→14:26)
[2020-10-28] MEDS: Aspirin Enteric Coated 81 MG Tablet PO SCH (07:25)
[2020-10-28] MEDS: Spironolactone 12.5 MG TABLET PO SCH (07:25)
[2020-10-28] MEDS: Lactulose Oral Soln 20 GM/30 ML UDC PO SCH ×2 (07:25→14:26)
[2020-10-28] MEDS: Morphine Sulfate Oral CONC 10 MG/0.5 ML ORAL.SYG SL PRN ×2 (10:04→14:31)
[2020-10-28] MEDS: *HR* LORazepam Oral Conc 2 MG/ML SL PRN ×2 (10:05→16:02)
== END 2020-10-28 17:43 | disposition hospice, home (50) | DRG 551 ==
LOC: EMEROOARM 14:19 → INTOOBSV 19:28 → 2ANU 19:28 → SUATTDRO 19:28 → 2ANU 20:41
PROVIDERS: ADMIT Family Medicine; ATTEND Pharmacist